=== PATIENT | female | born 1935 | race Caucasian/White ===

== ENCOUNTER → 2017-12-28 | Outpatient (CLI) | payer OTHER ==
[~2017-12-28] VITALS: Ht 149.9 cm; Wt 47.2 kg
[~2017-12-28] MED LIST: ASPIR 8181 MG PO; B12INJ IM; CALCIUM 500 +1 EAC5 PO; FISH OIL 1,001000 M2 PO; HYDROCODON-ACE1 EAC5 PO; HYDROCODONE-AP1 EAC6 PO; MAGOX 400400 MG PO; MOBIC15 MG PO; TYLENOL EXTRA500 MG PO; VITAMINC500 PO
--- NOTE | ~2017-12-28 | HPC ---
[facility] [place] [address] [place] [address] PAIN MANAGEMENT CONSULTATION Name: KASSIE MONTANA Room #: REG LACEY Angela.#: [id number] Admission: 12/28/17 Attend Phys: Panfilo Graber MD Discharge: Date of : 35 Report #: [id number] THIS REPORT FOR: //name// CC: Maurizio Garber DATE OF SERVICE: 12/28/2017 Followup visit for pain in the right hip and leg. The patient has improved some with her trochanteric bursa injection. In fact, for the first day or two the pain in the hip was nearly gone, has now returned somewhat. I think that we have provided some diagnostic information and she does indeed have some inflammatory changes around the area of her fracture in the trochanteric bursa. We also note today that she has secondary pains radiating from the hip down into the anterior thigh. She has pain in her knee as well. She says when she stands, she has pain that radiates down into both legs and her legs get "tired." PHYSICAL EXAMINATION: Today, reveals a very jevon pleasant 82-year-old. Blood pressure 114/65, heart rate 80, respirations 16. She is able to move from sitting to standing position without too much difficulty. Tenderness of the right hip is diminished, but still present. There is pain with hip flexion and external rotation. Straight leg raising today is also negative. Sensation and strength are normal in lower extremities. With prolonged standing in the pain clinic she begins to experience pain throughout the back that radiates down into the buttocks and into the legs bilaterally. IMPRESSION: 1. Trochanteric bursitis. 2. Lumbar radiculopathy. Dr. Ryan had recommended epidural injection trial and I have agreed today that we should see if she receives some sustained benefit with a single injection. Further injections will depend upon response. PROCEDURE: Lumbar epidural steroid injection under fluoroscopic guidance. DESCRIPTION OF PROCEDURE: She was taken to fluoroscopic suite, placed prone, skin prepped with ChloraPrep. Skin anesthetized over the L4-L5 interspace and a 20-gauge Tuohy epidural needle advanced first attempt in the epidural space with loss of resistance, there was no blood or CSF aspirated. 1 mL of Omnipaque was injected, good spread of dye observed, followed by 3 mL of 0.5% lidocaine mixed with 80 mg of triamcinolone. She tolerated the procedure well. She was observed for 45 minutes and discharged. Pain was 0 [place] [address] PAIN MANAGEMENT CONSULTATION Name: KASSIE MONTANA [facility] [id number] Admission: 12/28/17 Attend Phys: Panfilo Garber MD Discharge: Date of : 35 Report #: [id number] We will see her back in a month to a month and a half. <ELECTRONICALLY SIGNED> By: Panfilo Garber MD 01/01/18 1408 [id number] Panfilo Garber MD /catrachita
[2017-12-28 13:40] VITALS: BP 114/65
== END | disposition home or self-care (01) ==
LOC: PAIN 06:52
DX: M54.16 Radiculopathy, lumbar region (principal); M70.61 Trochanteric bursitis, right hip; Z88.2 Allergy status to sulfonamides; Z88.8 Allergy status to other drugs, medicaments and biological substances; Z79.82 Long term (current) use of aspirin; Z79.891 Long term (current) use of opiate analgesic

== ENCOUNTER → 2018-03-19 | Outpatient (CLI) | payer OTHER ==
[~2018-03-19] VITALS: Ht 149.9 cm; Wt 44.7 kg
[~2018-03-19] MED LIST changes: +CYMBALTA20 MG PO
--- NOTE | ~2018-03-19 | HPC ---
[facility] [place] [address] [place] [address] PAIN MANAGEMENT CONSULTATION Name: KASSIE MONTANA Room #: REG LACEY Julio César.#: [id number] Admission: 03/19/18 Attend Phys: Panfilo Garber MD Discharge: Date of : 35 Report #: [id number] THIS REPORT FOR: //name// CC: Maurizio Garber DATE OF SERVICE: 03/19/2018 REASON FOR VISIT: Followup visit for persistent right hip pain status post fracture for the first time in 3 visits. HISTORY OF PRESENT ILLNESS: The patient returns to Pain Clinic without crying. She has been very depressed by her slow recovery from her hip fracture. She has never had anything this kept her down for this long and I am glad to report that she seems to be finally turning the corner a bit. The pain intensity seems less. She is walking a bit more. She has developed plan to try and do a bit more walking and I have encouraged her to use the pool at her complex during these warm days when she can slip into the water in the morning when there are people there using a foam support and walk back and forth in the swimming pool. This should help with mobility of her right hip. She is now nearly 9 months out from her surgery. Trials of antidepressants for her situational depression failed miserably with side effects. Cymbalta even at low dose created hyponatremia with a sodium of 115. We have kept her on hydrocodone one half tablet of the 10/325 strength taking 2-3 times a day. She is allowed to take a full tablet if the pain is severe. She tolerates it reasonably well with keyv-lv-slpacpgk constipation. She seems to have accepted the constant reassurance that there is nothing to do other than tincture of time and that there is nothing that we can do to "fix the problem." PHYSICAL EXAMINATION: VITAL SIGNS: She is 4 feet 11 inches and weight 98 pounds with a BMI of 19.9. Blood pressure 135/58 and heart rate 70. Pain intensity 6. MUSCULOSKELETAL: She can stand independently, walks with her walker and her gait is fairly stable. She is not a fall risk at this time. She is on no blood thinners. She is at low risk for addiction by the opioid risk tool and we have had her sign an opioid agreement to understand the importance of safeguarding medications. IMPRESSION: 1. Chronic right hip pain status post fracture. 2. Situational depression, which seems to be improving. [facility] [address] [place] [address] PAIN MANAGEMENT CONSULTATION Name: KASSIE MONTANA Room #: REG [facility]#: [id number] Admission: 03/19/18 Attend Phys: Panfilo Garber MD Discharge: Date of : 35 Report #: [id number] PLAN: Follow up in the Pain Clinic in 3 months. By: [id number] Panfilo Garber MD /catrachita
[2018-03-19 13:01] VITALS: BP 135/58
== END ==
LOC: PAIN 06:42
DX: Z09 Encounter for follow-up examination after completed treatment for conditions other than malignant neoplasm (principal); M25.551 Pain in right hip; G89.29 Other chronic pain

== ENCOUNTER → 2018-07-12 | Outpatient (CLI) | payer OTHER ==
[~2018-07-12] VITALS: Ht 149.9 cm; Wt 43.4 kg
[~2018-07-12] MED LIST changes: +VOLTAREN GEL 1100 G1 TOP
--- NOTE | ~2018-07-12 | HPC ---
[facility] [place] [address] [place] [address] PAIN MANAGEMENT CONSULTATION Name: KASSIE MONTANA Room #: REG LACEY Meseret.#: [id number] Admission: 07/12/18 Attend Phys: Kityt Devi Discharge: Date of : 35 Report #: [id number] THIS REPORT FOR: //name// CC: Kitty Garber MD DATE OF SERVICE: 07/12/2018 CHIEF COMPLAINT: Today is for chronic hip pain status post fracture, here for medication management. HISTORY OF PRESENT ILLNESS: The patient returns to the pain clinic today for followup for her right hip pain. She states that she is afraid to take too many pain pills for fear of getting addicted. She states though when she does take core hydrocodone for her right hip pain that it is helpful. She states that her diclofenac that we had given at her last visit was not effective and stopped using that. She had some CBD oil that she attempted to use on her hip also, but that was an ineffective also. The patient does use a walker and is very careful when she is out of the house. She does occasionally use a cane when she is in the presence of another person and uses a cane while she is inside her house. She denies constipation presently. She does try to walk on the streets outside and was encouraged to be careful as the weather will be changing and it may have icy conditions. ALLERGIES: SULFA AND CELEBREX. CURRENT MEDICATIONS: Hydrocodone 10/325, aspirin, Tylenol Extra Strength, vitamin C, fish oil, Mag-Ox and Os-Cristobal. PQRS: 1. The patient does have a history of osteoarthritis in her hips. Denies rheumatoid arthritis. 2. Height 4 feet 11 inches, weight 95.6, the patient's BMI is 19.3. 3. Vital signs: Blood pressure 122/57, pulse is 80, respirations 14, oxygen level is 98. 4. Pain intensity is 5/10. 5. Fall risk: Does have some dizziness and uses a walker or a cane at all times, has not fallen in the last 3 months. 6. The patient is on no blood thinners. 7. Does have a history of hypertension. 8. Opioid therapy greater than 6 weeks. There is not an opioid contract in the chart at present. 9. Risk assessment is low. 10. Functional assessment tool is . [address] [address] PAIN MANAGEMENT CONSULTATION Name: KASSIE MONTANA Room #: REG [facility]#: [id number] Admission: 07/12/18 Attend Phys: Kitty Devi Discharge: Date of : 35 Report #: [id number] 11. No recreational drug use. The patient has never been a smoker and does have some past use of alcohol history. 12. The patient does have a [place] DPMP on the chart that is appropriate from Dr. Panfilo Garber. There were some tramadol in there from her orthopedic, but the patient states that she is not taking them presently because she did not want to take the hydrocodone and tramadol at the same time. PHYSICAL EXAMINATION: GENERAL: This is a very pleasant 83-year-old who is able to move from sitting to standing to walking with a little bit of difficulty. She says she has tenderness over her right hip with pain with flexion, extension and rotation. She states otherwise that she feels good. HEENT: Normocephalic, atraumatic. Extraocular muscles are intact. Mucous membranes moist. Hearing is adequate. LUNGS: Sounds clear. HEART: Regular. IMPRESSION: 1. Chronic right hip pain status post fracture. 2. Situational depression, but it has improved. 3. Management of high risk medicines under an opioid contract. PLAN: 1. We reviewed the fact that opiate medications are being used to provide analgesia adequate to support activities of daily living, not attempting to achieve a specific pain score on the 0-10 Visual Analog Scale. The current opiate medications are providing sufficient analgesia to allow the patient to participate in activities of daily living. The patient is not exhibiting any aberrant behavior suggestive of drug diversion. The patient is not having any adverse reactions to medications. The patient is not suffering from daytime somnolence or mental acuity changes. The patient is managing opiate-induced constipation with appropriate gnek-shh-hxnevwx agents and dietary considerations. The patient was counseled on concern for caution with operating a motor vehicle while using opiate medications. A physical exam was performed and the patient's functional status was evaluated. All patients with back pain were advised against the bed rest greater than 4 days and were advised to return to normal activities. Pain score assessment was noted and the treatment plan was reviewed with the patient. All current medications, both prescribed and OTC were reviewed and reconciled on the electronic medical record. Tobacco screening was accomplished and smoking cessation was advised when indicated. BMI was noted and diet/exercise modification was recommended for all patients following outside normal parameters. I reviewed with the patient today their responsibilities to [address] [address] PAIN MANAGEMENT CONSULTATION Name: KASSIE MONTANA Room #: REG LACEY Keen#: [id number] Admission: 07/12/18 Attend Phys: Kitty Devi Discharge: Date of : 35 Report #: [id number] prescription medications, reviewed their responsibility to utilize medications only as prescribed by the physician. They are to seek and receive pain medications only from 1 physician group ( [facility]). They are to use 1 pharmacy and keep the clinic informed if they change pharmacies. Their responsibilities include making followup visits in a timely fashion and to avoid abrupt discontinuation of medication usage. Their responsibilities further include bringing their medications (bottles from the pharmacy with residual pills) to the visit for possible confirmation of pill counts and the patient understands it is their responsibility to submit to random drug screens to ensure both that the medications prescribed are present, and that no other controlled substances are present. All prescriptions provided today were generated electronically. 2. After much discussion with the patient regarding opioid use and abuse versus using it for helping to achieve her pain control, it was decided that the patient will continue on her hydrocodone 10/325 she may take half to one pill up to 3 times a day, a total of 90 pills in a month or 3 pills a day. The patient may choose to split these and may do that every 4 hours if needed with a max of 3 pills a day. The patient was agreeable with that, thinks that may help when she is going on trips to take half a pill several times a day because recently she was not able to function very well on these trips due to pain. The patient will follow up in [address] Panfilo Garber or myself if needed or sooner if problems arise. The patient was seen in collaboration with Dr. Panfilo Garber. <ELECTRONICALLY SIGNED> By: Kitty Devi 07/16/18 0715 [id number] [id number] Kitty estes
[2018-07-12 10:18] VITALS: BP 122/57
== END ==
LOC: PAIN 07:08
DX: M25.551 Pain in right hip (principal); G89.29 Other chronic pain; F43.21 Adjustment disorder with depressed mood; Z79.891 Long term (current) use of opiate analgesic; Z79.899 Other long term (current) drug therapy

== ENCOUNTER → 2018-09-11 | Outpatient (CLI) | payer OTHER ==
[~2018-09-11] VITALS: Ht 149.9 cm; Wt 44.5 kg
[~2018-09-11] MED LIST changes: +GABAPENTIN 100100 MG PO; +VITAMIN D1000 UNI1 PO
--- NOTE | ~2018-09-11 | HPC ---
[facility] [place] [address] [place] [address] PAIN MANAGEMENT CONSULTATION Name: KASSIE MONTANA Room #: REG LACEY Meseret.#: [id number] Admission: 09/11/18 Attend Phys: Kitty Devi Discharge: Date of : 35 Report #: [id number] THIS REPORT FOR: //name// CC: Kitty Steven Adriannaloretta DATE OF SERVICE: 09/11/2018 CHIEF COMPLAINT: Chronic hip pain status post fracture. HISTORY OF PRESENT ILLNESS: The patient returns to the pain clinic today for followup for her medication management that she takes for ongoing right hip pain from a previous fracture. She tells me that it radiates into her thigh and groin, occasionally has some right knee pain and some foot pain, but mostly centered in her right hip. She complains of pain score of 6/10 today of a burning, achy, sharp pain, worse with her walking and standing. The medication that she takes thinks helps some. She is worried that she will get addicted to these medications. So she does take 3 of her hydrocodone a day, but feels like occasionally, it does not work as well as other times that she takes it. The patient would like a refill of her medications today. ALLERGIES: SULFA AND CELEBREX. CURRENT MEDICATIONS: Vitamin D daily, hydrocodone 10/325 up to 3 times a day, Tylenol Extra Strength as needed, aspirin 81 mg daily, vitamin B12 daily, fish oil daily, Mag-Ox daily and Os-Cristobal with vitamin D daily. PQRS: The patient has a history of osteoarthritis and denies rheumatoid arthritis. Height is 4 feet 11 inches, weight 98, BMI is 19.8. Vital signs: Blood pressure 149/62, pulse is 68, respirations 16, oxygen sat is 97%. Pain score 6/10. Fall risk she denies dizziness, does not need help walking or standing, though does use a walker and not fallen in the last 3 months. The patient denies blood thinners, does not take antihypertensive medicines. She has opioid signed contract that we have placed in the chart for her next medication refill. Her risk assessment tool is low and her functional assessment is 28/70. The patient denies recreational drug use. She does not smoke and does not drink alcohol. The patient's prescription monitoring system that we checked the patient is filling appropriately and monthly time fills from Dr. Panfilo Garber. The patient tells me that she does safeguard her medications. PHYSICAL EXAMINATION: GENERAL: This is a very pleasant 83-year-old female who appears her stated age. She is alert and orientated x 3. Her affect is appropriate. HEENT: Normocephalic, atraumatic. Extraocular eye muscles are intact. Mucous membranes are moist and hearing is adequate. [address] [address] PAIN MANAGEMENT CONSULTATION Name: KASSIE MONTANA Room #: REG [facility] Osmani#: [id number] Admission: 09/11/18 Attend Phys: Kitty Devi Discharge: Date of : 35 Report #: [id number] NECK: No JVD or adenopathy. MUSCULOSKELETAL: The patient moves from sitting to standing with a little difficulty. She has tenderness over her right hip into her right groin. Does use a walker and she walks with an antalgic gait. The patient does complain of burning in her right thigh, occasionally radiates to her lower leg. IMPRESSION: 1. Chronic right hip pain status post fracture. 2. Situational depression, but has improved. No longer on antidepressants. 3. Neuropathy. 4. Management of high-risk medications in her opioid contract. We reviewed the fact that opiate medications are being used to provide analgesia adequate to support activities of daily living, not attempting to achieve a specific pain score on the 0-10 Visual Analog Scale. The current opiate medications are providing sufficient analgesia to allow the patient to participate in activities of daily living. The patient is not exhibiting any aberrant behavior suggestive of drug diversion. The patient is not having any adverse reactions to medications. The patient is not suffering from daytime somnolence or mental acuity changes. The patient is managing opiate-induced constipation with appropriate qnvo-rwl-uiepyyb agents and dietary considerations. The patient was counseled on concern for caution with operating a motor vehicle while using opiate medications. A physical exam was performed and the patient's functional status was evaluated. All patients with back pain were advised against the bed rest greater than 4 days and were advised to return to normal activities. Pain score assessment was noted and the treatment plan was reviewed with the patient. All current medications, both prescribed and OTC were reviewed and reconciled on the electronic medical record. Tobacco screening was accomplished and smoking cessation was advised when indicated. BMI was noted and diet/exercise modification was recommended for all patients following outside normal parameters. I reviewed with the patient today their responsibilities to safeguard prescription medications, reviewed their responsibility to utilize medications only as prescribed by the physician. They are to seek and receive pain medications only from 1 physician group ( [facility]). They are to use 1 pharmacy and keep the clinic informed if they change pharmacies. Their responsibilities include making followup visits in a timely fashion and to avoid abrupt discontinuation of medication usage. Their responsibilities further include bringing their medications (bottles from the pharmacy with residual pills) to the visit for possible confirmation of pill counts and the patient understands it is their responsibility to submit to random drug screens to ensure both that the medications prescribed are present, and that no other controlled substances are present. All prescriptions provided today were [facility] [address] [place] [address] PAIN MANAGEMENT CONSULTATION Name: KASSIE MONTANA Room #: REG LACEY Osmani#: [id number] Admission: 09/11/18 Attend Phys: Kitty Devi Discharge: Date of : 35 Report #: [id number] generated electronically. PLAN: 1. We discussed treatment options today and reviewed the patient's medications. She tells me that she has been taking her hydrocodone 3 times a day, spaced about every 8 hours. She finds that some days are more helpful than others. She does occasionally take some Tylenol to supplement if she has increased pain. 2. The patient complains of burning in her leg today, especially on her right thigh and groin. We discussed treatment with gabapentin, which is a nerve medication. The patient is familiar with this since her had taken it when he had shingles. I talked to her about side effects and the need of this medicine to start slowly and increase slowly due to possible side effects such as dizziness or drowsiness. The patient lives alone. We do not want her to fall. The patient understands these. We will start at 100 mg at bedtime. The patient will take this a few hours before she goes to bed to see if that helps with less side effects in the morning. The patient will call our office in about 2 weeks to see how she is doing with this medicine. If she finds that it has been a little beneficial for her burning pain, we will increase it. We will increase slow to reduce side effects. Our goal will be 300 mg either spaced throughout the day or all at bedtime. The patient is agreeable with this plan of care. 3)Scripts given today for her hydrocodone 10/325, #90 for today, for an 8-week and gabapentin 100 mg, #30 with one additional refill. The patient will return in 2-month timeframe. The patient is seen today in collaboration with Dr. Panfilo Garber. <ELECTRONICALLY SIGNED> By: Kitty Devi 09/12/18 0722 1320 [id number] Kitty Devi /nt
[2018-09-11 11:00] VITALS: BP 149/62
== END ==
LOC: PAIN 10:05
DX: M25.551 Pain in right hip (principal); G89.29 Other chronic pain; G62.9 Polyneuropathy, unspecified; Z79.891 Long term (current) use of opiate analgesic

== ENCOUNTER → 2018-11-08 | Outpatient (CLI) | payer OTHER ==
[~2018-11-08] VITALS: Ht 149.9 cm; Wt 45.5 kg
[~2018-11-08] MED LIST changes: +FLUZONE HI180 MCG/06 IM
[2018-11-08 10:31] VITALS: BP 117/54
--- NOTE | 2018-11-08 10:51 | NUR ---
Pain Clinic Assessment: 1. History of Osteoarthritis: YES History of Rheumatoid Arthritis: NO 2. Height: 4 ft. 11 in. 149.9 cm. Weight: 100.2 lb. oz. 45.450 kg. Patient's BMI: 20.2 3. Vital Signs: BP: 117/54 Pulse: 70 Resp: 14 Temp: 02 Sat: 99 ECG Mon: 4. Pain Intensity: 3 WITH MEDS 5. Fall Risk: Dizziness: N Needs help standing or walking: Y Fallen in the last 3 months: N Fall risk comments: 6. Patient on Blood Thinner: None 7. History of Hypertension: N 8. Opioid Therapy greater than 6 weeks: N Opiate Contract Signed: 9. Risk Assessment Tool Provided: LOW RISK 09/27 10. Functional Assessment Tool: 11. Recreational Drug Use: Never Drug Type: Tobacco Use: Never Smoker Tobacco Type: Amount or Packs/day: How Many Years: Alcohol Use: Past use Frequency: Quant:
--- NOTE | 2018-11-09 08:22 | HPC ---
[facility] [place] [address] PAIN MANAGEMENT CONSULTATION Name: KASSIE MONTANA Room #: REG LACEY Osmani#: [id number] Admission: 11/08/18 ������������������ Attend Phys: Kitty Devi Discharge: ������������������ Date of : 35 Report #: [id number] THIS REPORT FOR: //name// CC: Kitty Steven Jorge DATE OF SERVICE: 11/08/2018 CHIEF COMPLAINT: Chronic hip pain, status post fracture. HISTORY OF PRESENT ILLNESS: The patient returns to the pain clinic today for refill of her current medications. She tells me she has ongoing pain in her right hip. The patient is able to pinpoint an area where she feels that it is most painful. She tells me that the hydrocodone that we give her is very helpful, but she feels like she is addicted to the medications. She says she does take them though because they are very helpful and she is able to be active, she exercises and walks. She tells us today that the trial of gabapentin that we gave her did not help with any of her pain, so she has stopped taking that per our directions. She denies any constipation. She takes the milk of magnesia when she feels that she needs to. Otherwise, her pain score today she tells us is 3/10 and would like a refill of her medications today. ALLERGIES: SULFA, CELEBREX. MEDICATIONS: Hydrocodone 10/325 half to one tablet 3 times a day, vitamin D twice daily, 81 mg aspirin, Tylenol Extra Strength as needed, ascorbic acid 500 mg daily, vitamin B12 daily, fish oil daily, Mag-Ox 400 mg daily, Os-Cristobal 500 daily. PQRS: 1. She has history of osteoarthritis in her hip and knee. She denies rheumatoid arthritis. 2. Height is 4 feet 11 inches, weight is 100, BMI is 20. 3. Vital signs: Blood pressure 117/54, pulse is 70, respirations 14, oxygen sat is 99. 4. Pain score 3/10 with medication. 5. Fall risk. Denies dizziness. She does need help walking and standing. She uses a walker. She has not fallen in the last 3 months. 6. The patient is not on any blood thinners and she does not take any antihypertensive medications. 7. Opioid therapy is greater than 6 weeks. Therefore, we signed an opioid contract today and is on the chart. 8. Risk assessment tool is low. Her functional assessment is 28/70. 9. Recreational drug use, she denies. She is not a smoker, [place] [address] PAIN MANAGEMENT CONSULTATION Name: KASSIE MONTANA Room #: REG LACEY Keen#: [id number] Admission: 11/08/18 ������������������ Attend Phys: Kitty Devi Discharge: ������������������ Date of : 35 Report #: [id number] We checked the prescription monitoring system. The patient is filling appropriately with her medications and is due for those today. PHYSICAL EXAMINATION: GENERAL: This is a very pleasant 83-year-old female who appears her stated age. She is alert and orientated. Her affect is appropriate. Her speech is fluent. HEENT: Normocephalic, atraumatic. Extraocular eye muscles are intact. Mucous membranes are moist. Hearing is adequate. MUSCULOSKELETAL: The patient is able to move from sitting to standing with little difficulty. She does complain of point tenderness in her right hip. She uses a walker and walks with a slight antalgic gait. The patient is able to do complete range of motion in her right hip. ASSESSMENT: 1. Chronic right hip pain, status post fracture and repair. 2. Situational depression. 3. Neuropathy. 4. Management of high risk medications under opioid agreement. We reviewed the fact that opiate medications are being used to provide analgesia adequate to support activities of daily living, not attempting to achieve a specific pain score on the 0-10 Visual Analog Scale. The current opiate medications are providing sufficient analgesia to allow the patient to participate in activities of daily living. The patient is not exhibiting any aberrant behavior suggestive of drug diversion. The patient is not having any adverse reactions to medications. The patient is not suffering from daytime somnolence or mental acuity changes. The patient is managing opiate-induced constipation with appropriate [id number] agents and dietary considerations. The patient was counseled on concern for caution with operating a motor vehicle while using opiate medications. A physical exam was performed and the patient's functional status was evaluated. All patients with back pain were advised against the bed rest greater than 4 days and were advised to return to normal activities. Pain score assessment was noted and the treatment plan was reviewed with the patient. All current medications, both prescribed and OTC were reviewed and reconciled on the electronic medical record. Tobacco screening was accomplished and smoking cessation was advised when indicated. BMI was noted and diet/exercise modification was recommended for all patients following outside normal parameters. I reviewed with the patient today their responsibilities to safeguard prescription medications, reviewed their responsibility to utilize medications only as prescribed by the physician. They are to seek and receive pain medications only from 1 physician group ([facility]). They are to use [address] [address] PAIN MANAGEMENT CONSULTATION Name: KASSIE MONTANA Room #: REG CLEstuardo Keen#: [id number] Admission: 11/08/18 ������������������ Attend Phys: Kitty RUFUS Devi Discharge: ������������������ Date of : 35 Report #: [id number] pharmacy and keep the clinic informed if they change pharmacies. Their responsibilities include making followup visits in a timely fashion and to avoid abrupt discontinuation of medication usage. Their responsibilities further include bringing their medications (bottles from the pharmacy with residual pills) to the visit for possible confirmation of pill counts and the patient understands it is their responsibility to submit to random drug screens to ensure both that the medications prescribed are present, and that no other controlled substances are present. All prescriptions provided today were generated electronically. PLAN: 1. We reviewed treatment options with the patient today. The patient tells me that she is doing quite well when she does take her hydrocodone. She is afraid that she has become addicted. We did discuss addiction versus dependency and tolerance, though that the patient is not addicted to these medications. She does need these medications to help with her pain and she is able to function while taking these pain medications. The patient agrees with that. She told me that the gabapentin only made her sleepy, so she is not taking that, but the hydrocodone that she takes, she is able to function and her pain is decreased while she takes this. 2. We did discuss with her pinpoint right hip pain and it was decided to do an x-ray of her right hip, AP and lateral as well as her pelvis to see if there is anything that may be causing the significant pain since she has had her surgery a year and a half ago. The patient went to the X-ray Department and came back. We reviewed the x-ray with her. It showed no fractures and that the hardware was intact. There is one slight area where the metal magdy is slightly higher than her bone of her hip. This may be causing some of her discomfort. We feel that this will continue to get better over time. The patient tells us that her pain has decreased some and glad to see that nothing is wrong with her surgery sites. 3. The patient will continue to take her medicines that she needs to at home. Two scripts were given today of hydrocodone 10/325, #90 to be released today and 4 weeks. 4. The patient seen also by Dr. Garber today who also discussed and reiterated the time will help with her pain and her medications will also help with her pain, in collaboration with Dr. Panfilo Garber today. ��������������������������������������������� <ELECTRONICALLY SIGNED> ���������������������������������������� By: Kitty Devi ��������������������������������������������� 11/09/18 0822 [id number] Kitty Devi /catrachita
== END ==
LOC: PAIN 07:02
DX: G89.29 Other chronic pain (principal); M19.90 Unspecified osteoarthritis, unspecified site; F32.9 Major depressive disorder, single episode, unspecified; G62.9 Polyneuropathy, unspecified; Z88.2 Allergy status to sulfonamides; Z88.8 Allergy status to other drugs, medicaments and biological substances; Z79.899 Other long term (current) drug therapy; Z79.82 Long term (current) use of aspirin

== ENCOUNTER → 2019-01-01 | Outpatient (CLI) | payer OTHER ==
[~2019-01-01] VITALS: Ht 149.9 cm; Wt 46.1 kg
[2019-01-01 10:05] VITALS: BP 133/60
--- NOTE | 2019-01-01 10:21 | NUR ---
Pain Clinic Assessment: 1. History of Osteoarthritis: YES History of Rheumatoid Arthritis: NO 2. Height: 4 ft. 11 in. 149.9 cm. Weight: 101.6 lb. oz. 46.085 kg. Patient's BMI: 20.5 3. Vital Signs: BP: 133/60 Pulse: 75 Resp: 14 Temp: 02 Sat: 100 ECG Mon: 4. Pain Intensity: 5 5. Fall Risk: Dizziness: N Needs help standing or walking: Y Fallen in the last 3 months: N Fall risk comments: 6. Patient on Blood Thinner: None 7. History of Hypertension: N 8. Opioid Therapy greater than 6 weeks: Y Opiate Contract Signed: 9. Risk Assessment Tool Provided: LOW RISK 09/27 10. Functional Assessment Tool: 11. Recreational Drug Use: Never Drug Type: Tobacco Use: Never Smoker Tobacco Type: Amount or Packs/day: How Many Years: Alcohol Use: Past use Frequency: Quant:
--- NOTE | 2019-01-02 07:58 | HPC ---
[facility] [place] [address] [place] [address] PAIN MANAGEMENT CONSULTATION Name: KASSIE MONTANA Room #: REG LACEY Julio César.#: [id number] Admission: 01/01/19 ������������������ Attend Phys: Kitty Devi Discharge: ������������������ Date of : 35 Report #: [id number] THIS REPORT FOR: //name// CC: Kitty Ortiz DATE OF SERVICE: 01/01/2019 CHIEF COMPLAINT: Chronic hip pain, status post fracture and lumbar radiculopathy. HISTORY OF PRESENT ILLNESS: The patient returns to the pain clinic today for refill of her current medications. She tells me that she would like to get off her pain medicines. She feels that they are not as helpful as she was hoping. A friend of hers had directed her to go see Dr. Ortiz what the patient has done since our last visit with her in October and she tells me that she is planning on having [employer] spinal cord stimulator trial with him. She is in the process of seeing the psych evaluation, which she had done yesterday and is waiting to have the date set for her trial. She was very worried that we would be mad at her for going to another doctor. I explained to her that we are not mad at her, that Dr. Garber does also do this procedure. She tells me that she is just tired of being in pain. She feels like she is regressing in her walking. She tells me that she is having more balance issues. She is just tired all the time, tired of being in pain and was just looking for some alternative. The patient continues to take her hydrocodone 1 tablet 3 times a day, though it only lasts about 4 hours before it wears off and she does take gabapentin 1 tablet at bedtime. This enables her to sleep. She tells me today, her pain score is 5/10, mostly in her lower back, right buttock, right groin, right thigh, right knee. She also complains of some arthritic hand issues today. Her pain is worse with walking and standing. She does use a walker. The patient denies any constipation or daytime sleepiness. She just feels sleepy in the morning since she is not sleeping well at night. ALLERGIES: SULFA, CELEBREX. CURRENT MEDICATIONS: Hydrocodone 10/325 half to one tablet 3 times a day, vitamin D 1000 units twice daily, aspirin 81 mg daily, Tylenol Extra Strength as needed, vitamin C 500 mg daily, vitamin B12 injection monthly, fish oil 1000 mg daily, Mag-Ox 400 mg daily, Os-Cristobal 500 mg daily. PQRS: 1. She does have a history of osteoarthritis in her hips, knees and hands. Denies any rheumatoid arthritis. 2. Height is 4 feet 11 inches, weight is 101. BMI [place] 20[place] [address] PAIN MANAGEMENT CONSULTATION Name: KASSIE MONTANA Room #: REG Estuardo Keen#: [id number] Admission: 01/01/19 ������������������ Attend Phys: Kitty Devi Discharge: ������������������ Date of : 35 Report #: [id number] 3. Vital signs: Blood pressure 133/60, pulse of 75, respirations 14, oxygen sat is 100%. 4. Pain score is 5/10. 5. Fall risk. Denies dizziness. Does use a walker for walking. Has not fallen in the last 3 months. 6. The patient is not on any blood thinners. She does not take any medicines for hypertension. 7. Opioid therapy is greater than 6 weeks; therefore, an opioid signed contract was on the chart. 8. Risk assessment tool is low. Her functional assessment is 28/70. 9. Recreational drug use, she denies. She is not a smoker and she does not drink alcohol. Did check the prescription monitoring system. The patient is filling appropriately from Dr. Panfilo Garber. She tells me that she does safeguard her medications at all times. PHYSICAL EXAMINATION: GENERAL: This is a very pleasant 83-year-old female who appears her stated age. Placing her pain score today at 5/10. Her affect is appropriate. Her speech is fluent. She is alert and orientated and she is a good historian. HEENT: Normocephalic, atraumatic. Extraocular eye muscles are intact. Mucous membranes are moist. Hearing is adequate. MUSCULOSKELETAL: The patient is able to move from sitting to standing with the aid of the armchairs and uses a walker. She does have an antalgic gait. She complains of tenderness over her right hip. She does have pain that radiates along the outer aspect of her right leg down into her calf, not involving her foot. Lower extremity strength is judged to be 4/5 bilaterally and equal muscle tone. ASSESSMENT: 1. Chronic right hip pain, status post fracture and repair. 2. Situational depression. 3. Neuropathy. 4. Management of high risk medication under opioid agreement. 5. Lumbar radiculopathy. We reviewed the fact that opiate medications are being used to provide analgesia adequate to support activities of daily living, not attempting to achieve a specific pain score on the 0-10 Visual Analog Scale. The current opiate medications are providing sufficient analgesia to allow the patient to participate in activities of daily living. The patient is not exhibiting any aberrant behavior suggestive of drug diversion. The patient is not having any adverse reactions to medications. The patient is not suffering from daytime somnolence or mental acuity changes. The patient is managing opiate-induced constipation with appropriate [id number]-[id number] agents and dietary considerations. The patient was counseled on concern for caution with operating a motor vehicle while using opiate medications. [facility] [address] [place] [address] PAIN MANAGEMENT CONSULTATION Name: KASSIE MONTANA Room #: REG LACEY Osmani#: [id number] Admission: 01/01/19 ������������������ Attend Phys: Kitty Devi Discharge: ������������������ Date of : 35 Report #: [id number] A physical exam was performed and the patient's functional status was evaluated. All patients with back pain were advised against the bed rest greater than 4 days and were advised to return to normal activities. Pain score assessment was noted and the treatment plan was reviewed with the patient. All current medications, both prescribed and OTC were reviewed and reconciled on the electronic medical record. Tobacco screening was accomplished and smoking cessation was advised when indicated. BMI was noted and diet/exercise modification was recommended for all patients following outside normal parameters. I reviewed with the patient today their responsibilities to safeguard prescription medications, reviewed their responsibility to utilize medications only as prescribed by the physician. They are to seek and receive pain medications only from 1 physician group ([facility]). They are to use 1 pharmacy and keep the clinic informed if they change pharmacies. Their responsibilities include making followup visits in a timely fashion and to avoid abrupt discontinuation of medication usage. Their responsibilities further include bringing their medications (bottles from the pharmacy with residual pills) to the visit for possible confirmation of pill counts and the patient understands it is their responsibility to submit to random drug screens to ensure both that the medications prescribed are present, and that no other controlled substances are present. All prescriptions provided today were generated electronically. PLAN: 1. We discussed treatment options with the patient today. The patient has brought the [employer] spinal cord stimulator information with her today telling me that she had visited with Dr. Ortiz and is in the process of having this information approved by her insurance company so she is able to have a spinal cord stimulator trial. I did tell her that Dr. Panfilo Garber does this procedure as well. We have done epidurals in the past that were not helpful for any radicular pain and we have also tried gabapentin that the patient was unable to tolerate at higher doses, so therefore, she is only on 100 mg at night. I told her maybe this will be a good option for her and to continue having Dr. Ortiz work her up and go through with the trial. 2. Dr. Garber did enter the room and told the patient that is fine. She is to see Dr. Ortiz for the spinal cord stimulator and he is very hopeful that it will work for her. She tells the patient that we will write her medicines for this month and then, she can continue with Dr. Ortiz hopefully after she has the trial and if it is effective that she will be able to decrease her pain medicine. Dr. Garber said that Dr. Ortiz could tell her how to wean off of her hydrocodone. 3. Prescriptions given for hydrocodone 10/325 half to one tablet t.i.d., #90 and gabapentin 100 mg capsules 1 at bedtime, #30 with 1 additional refill. 4. The patient verbalizes understanding. She feels bad that she will no longer [facility] [address] [place] [address] PAIN MANAGEMENT CONSULTATION Name: KASSIE MONTANA Room #: REG CLEstuardo Angela.#: [id number] Admission: 01/01/19 ������������������ Attend Phys: Kitty Devi Discharge: ������������������ Date of : 35 Report #: [id number] be coming to our clinic, but she understands that if this is helpful that she will be able to get off her medications and hopefully, increase her function. This is the main goal for all of us for her, is to increase her ability to walk with decreased pain. We wish her the best of luck and following with Dr. Ortiz. 5. The patient is seen today with Dr. Garber who collaborated care. ��������������������������������������������� <ELECTRONICALLY SIGNED> ���������������������������������������� By: Kitty Devi ��������������������������������������������� 01/02/19 0758 [id number] Kitty Devi /nt
== END ==
LOC: PAIN 06:57
DX: M25.551 Pain in right hip (principal); F32.9 Major depressive disorder, single episode, unspecified; M54.16 Radiculopathy, lumbar region; G62.9 Polyneuropathy, unspecified; Z79.899 Other long term (current) drug therapy; Z98.890 Other specified postprocedural states

== ENCOUNTER → 2019-01-29 | Outpatient (CLI) | payer OTHER ==
[~2019-01-29] VITALS: Ht 149.9 cm; Wt 45.5 kg
[2019-01-29 08:41] VITALS: BP 107/55
--- NOTE | 2019-01-29 08:53 | NUR ---
Pain Clinic Assessment: 1. History of Osteoarthritis: YES History of Rheumatoid Arthritis: NO 2. Height: 4 ft. 11 in. 149.9 cm. Weight: 100.2 lb. oz. 45.450 kg. Patient's BMI: 20.2 3. Vital Signs: BP: 107/55 Pulse: 80 Resp: 14 Temp: 02 Sat: 99 ECG Mon: 4. Pain Intensity: 4 5. Fall Risk: Dizziness: N Needs help standing or walking: Y Fallen in the last 3 months: N Fall risk comments: 6. Patient on Blood Thinner: None 7. History of Hypertension: N 8. Opioid Therapy greater than 6 weeks: Y Opiate Contract Signed: 9. Risk Assessment Tool Provided: LOW RISK 09/27 10. Functional Assessment Tool: 11. Recreational Drug Use: Never Drug Type: Tobacco Use: Never Smoker Tobacco Type: Amount or Packs/day: How Many Years: Alcohol Use: Past use Frequency: Quant:
--- NOTE | 2019-01-30 07:33 | HPC ---
[facility] [address] [place] [address] PAIN MANAGEMENT CONSULTATION Name: KASSIE MONTANA Room #: REG LACEY Julio César.#: [id number] Admission: 01/29/19 ������������������ Attend Phys: Kitty Devi Discharge: ������������������ Date of : 35 Report #: [id number] THIS REPORT FOR: //name// CC: Kitty Ortiz MD DATE OF SERVICE: 01/29/2019 CHIEF COMPLAINT: Chronic hip pain, status post fracture and lumbar radiculopathy. HISTORY OF PRESENT ILLNESS: This is a very pleasant 83-year-old female who returns to the Pain Clinic today for one last refill of her medications prior to her spinal cord stimulator with Dr. Ortiz next week. The patient is hopeful to have a successful trial for her low back pain, right thigh, groin and knee pain and bilateral feet pain and she tells me she hopes to get off of her medications of her hydrocodone once the spinal cord stimulator is implanted if it is a successful trial. She tells me her pain score is a 4/10, worse with walking and standing, better with her medications and heat, though she feels that her medications do not last 8 hours. She will run out of medicines prior to her spinal cord stimulator trial. That is why she is here today. Otherwise, after the trial, she is hopeful to transition her care to Dr. Ortiz's office and then taper off her medicines. The patient tells me that she has been trying to walk more. She has been walking down her street since the weather is better using her walker at all times when she is by herself. She brings with her some CBD oil today that her daughter had given her. She was wondering about trying that. She had tried the cream in the past on her hip, but that was ineffective. I explained that CBD oil does not have any THC in it. So therefore, it should be okay for her to use with her opioids and if she would like to try it once or twice a day, that is fine. ALLERGIES: SULFA AND CELEBREX. MEDICATIONS: Hydrocodone 10/325 up to 3 times a day, gabapentin 100 mg at bedtime, vitamin D, aspirin, vitamin C, fish oil, Mag-Ox and Os-Cristobal. PQRS: 1. She has arthritic changes in her hips, knees and hands. Denies any rheumatoid arthritis. 2. Height is 4 feet 11 inches, weight is 100, BMI is 20. 3. Vital signs: 107/55, pulse is 80, respirations 14, oxygen sat 99, [place] [address] PAIN MANAGEMENT CONSULTATION Name: KASSIE MONTANA Room #: REG [facility] Janessa.Onur.#: [id number] Admission: 01/29/19 ������������������ Attend Phys: Kitty Devi Discharge: ������������������ Date of : 35 Report #: [id number] score is 4/10. 4. Fall risk, denies dizziness. Uses a walker and has not fallen in the last 3 months. 5. She is not on any blood thinners and does not take medicine for hypertension. 6. Opioid therapy is greater than 6 weeks. Her risk assessment tool is low. Her functional assessment is 28/70. 7. Recreational drug use, she denies. She is not a smoker and used alcohol in the past. We did check the prescription monitoring system. The patient is due to fill her medications with no aberrant behaviors noted. PHYSICAL EXAMINATION: GENERAL: This is a very pleasant 83-year-old female, who appears her stated age, placing her pain score 4/10 today. Her affect is appropriate. Her speech is fluent. HEENT: Normocephalic, atraumatic. Extraocular eye muscles are intact. Mucous membranes are moist. Hearing is adequate. MUSCULOSKELETAL: The patient is able to move from sitting to standing with the use of the arm rest and her walker. She walks with an antalgic gait. She has tenderness over her right hip and numbness in her bilateral feet. Her lower extremity strength is judged to be 4/5 bilaterally with equal muscle tone and symmetry. Pain radiates down her right leg to the outer aspect of her calf. ASSESSMENT: 1. Chronic right hip pain, status post fracture and repair. 2. Situational depression. 3. Neuropathy. 4. Management of high risk medication under terms of written opioid agreement. 5. Lumbar radiculopathy. We reviewed the fact that opiate medications are being used to provide analgesia adequate to support activities of daily living, not attempting to achieve a specific pain score on the 0-10 Visual Analog Scale. The current opiate medications are providing sufficient analgesia to allow the patient to participate in activities of daily living. The patient is not exhibiting any aberrant behavior suggestive of drug diversion. The patient is not having any adverse reactions to medications. The patient is not suffering from daytime somnolence or mental acuity changes. The patient is managing opiate-induced constipation with appropriate waed-igz-jkphruv agents and dietary considerations. The patient was counseled on concern for caution with operating a motor vehicle while using opiate medications. A physical exam was performed and the patient's functional status was evaluated. All patients with back pain were advised against the bed rest greater than [address] [address] PAIN MANAGEMENT CONSULTATION Name: KASSIE MONTANA Room #: REG [facility]#: [id number] Admission: 01/29/19 ������������������ Attend Phys: Kitty RUFUS Shandra Discharge: ������������������ Date of : 35 Report #: [id number] days and were advised to return to normal activities. Pain score assessment was noted and the treatment plan was reviewed with the patient. All current medications, both prescribed and OTC were reviewed and reconciled on the electronic medical record. Tobacco screening was accomplished and smoking cessation was advised when indicated. BMI was noted and diet/exercise modification was recommended for all patients following outside normal parameters. I reviewed with the patient today their responsibilities to safeguard prescription medications, reviewed their responsibility to utilize medications only as prescribed by the physician. They are to seek and receive pain medications only from 1 physician group ( [facility]). They are to use 1 pharmacy and keep the clinic informed if they change pharmacies. Their responsibilities include making followup visits in a timely fashion and to avoid abrupt discontinuation of medication usage. Their responsibilities further include bringing their medications (bottles from the pharmacy with residual pills) to the visit for possible confirmation of pill counts and the patient understands it is their responsibility to submit to random drug screens to ensure both that the medications prescribed are present, and that no other controlled substances are present. All prescriptions provided today were generated electronically. PLAN: 1. We discussed treatment options with the patient today. The patient is having her spinal cord stimulator trial with Dr. Ortiz on the , but is out of her medications prior to that. Scripts given today for hydrocodone , #90 for release today from Dr. Panfilo Garber. The patient will continue to use these until the trial and then hopeful to decrease the medicines during the trial. If it is helpful, then she will have the permanent placed by Dr. Ortiz and hopefully wean off her hydrocodone. That is her ultimate goal. 2. The patient has brought CBD oil with her. I encouraged the patient that she can try it once or twice a day and see if it is helpful. She had tried the cream, which was ineffective, but she had not tried the CBD oil at this time. 3. I encouraged the patient to be as active as possible. Now that the weather is nicer, she has been walking some outside. I encouraged her to do that, especially during her trial to see if it is beneficial in relieving her pain. 4. The patient is seen with Dr. Panfilo Garber today who collaborated care. The patient will follow up with Dr. Ortiz from now on for her medication management and weaning. ��������������������������������������������� <ELECTRONICALLY SIGNED> ���������������������������������������� By: Kitty Devi ��������������������������������������������� 01/30/19 0733 [id number] 29 Kitty Devi /catrachita
== END ==
LOC: PAIN 06:46
DX: G89.29 Other chronic pain (principal); M16.0 Bilateral primary osteoarthritis of hip; M17.0 Bilateral primary osteoarthritis of knee; M19.041 Primary osteoarthritis, right hand; M19.042 Primary osteoarthritis, left hand; F43.21 Adjustment disorder with depressed mood; Z87.81 Personal history of (healed) traumatic fracture; Z88.8 Allergy status to other drugs, medicaments and biological substances; Z88.2 Allergy status to sulfonamides; Z79.891 Long term (current) use of opiate analgesic; Z79.899 Other long term (current) drug therapy

== ENCOUNTER → 2019-11-25 | Outpatient (CLI) | payer OTHER ==
[~2019-11-25] VITALS: Ht 149.9 cm; Wt 45.5 kg
[~2019-11-25] MED LIST changes: +HYDROCODON-ACE1 EAC7 PO
[2019-11-25 09:45] VITALS: BP 152/76
--- NOTE | 2019-11-25 10:03 | NUR ---
Pain Clinic Assessment: 1. History of Osteoarthritis: HIPS History of Rheumatoid Arthritis: NONE 2. Height: 4 ft. 11 in. 149.9 cm. Weight: 100.4 lb. oz. 45.541 kg. Patient's BMI: 20.3 3. Vital Signs: BP: 152/76 Pulse: 67 Resp: 16 Temp: 02 Sat: 100 ECG Mon: 4. Pain Intensity: 4 5. Fall Risk: Dizziness: Y Needs help standing or walking: Y Fallen in the last 3 months: N Fall risk comments: 6. Patient on Blood Thinner: None 7. History of Hypertension: N 8. Opioid Therapy greater than 6 weeks: Y Opiate Contract Signed: 11/08/18 9. Risk Assessment Tool Provided: 2- LOW 10. Functional Assessment Tool: 11. Recreational Drug Use: Never Drug Type: Tobacco Use: Never Smoker Tobacco Type: Amount or Packs/day: How Many Years: Alcohol Use: Past use Frequency: Quant:
--- NOTE | 2019-11-25 14:51 | HPC ---
[facility] [place] [address] [place] [address] PAIN MANAGEMENT CONSULTATION Name: KASSIE MONTANA Room #: REG LACEY Osmani#: [id number] Admission: 11/25/19 Attend Phys: Kitty Devi Discharge: Date of : 35 Report #: [id number] THIS REPORT FOR: cc: Maurizio Patel MD, Bruce H. MD Hocker,Kitty HOOPER ~ DATE OF SERVICE: 11/25/2019 CHIEF COMPLAINT: Chronic hip pain, status post fracture and lumbar radiculopathy. HISTORY OF PRESENT ILLNESS: This is a pleasant 84-year-old female who returns to the pain clinic today having been absent for almost a year. She has been seeing Dr. Ortiz, who has been managing her pain. She had an implantation of a Nevro spinal cord stimulator in March. Per the reports from their office, it looks like it was beneficial in controlling and improving some of her pain for a while, but then the patient had it removed in June as she states it was not helpful and she did not like the sensation or feeling in her lower back. She continued to have periodic injections as well as acupuncture and health care law specialist through their office. She reports she did not find any of these beneficial in helping her with her low back pain and bilateral leg pain. She continues to have neuropathy in her bilateral feet and has been taking gabapentin for this. She reports her legs do feel weak at times and uses a walker at all times. Today, the patient has returned to our clinic, stating she will no longer be going back to Dr. Ortiz's office. She would like to continue with pain management here through Dr. Garber again. She was reporting a pain score of 4/10. It is characterized by an aching, burning feeling across her lower back and feet, worse with walking and standing. She feels that the medications that she has been taking of hydrocodone and gabapentin are beneficial, but they continue to try her and wean her off her hydrocodone. She feels that she needs tablets at least 3 times a day to be able to function in her daily activities. She reports she does do home exercises and yoga. She tries to be active and walking with her walker, but feels that she needs pain medication to help her with her daily activities. ALLERGIES: SULFA and CELEBREX. CURRENT LIST OF MEDICATIONS: Hydrocodone 5/325 two tablets a day, vitamin D, aspirin, Tylenol Extra Strength, vitamin B12, gabapentin 300 mg at bedtime, fish oil and Os-Cristobal. PQRS: 1. She has osteoarthritic changes in her hips, knees [place] [address] PAIN MANAGEMENT CONSULTATION Name: KASSIE MONTANA Tracy Room #: REG LACEY Keen#: [id number] Admission: 11/25/19 Attend Phys: Kitty Devi Discharge: Date of : 35 Report #: [id number] rheumatoid arthritis. 2. Height is 4 feet 11 inches, weight is 100, BMI is 20. 3. Vital signs: Blood pressure 152/76, pulse is 67, respirations 16, oxygen sat is 100. 4. Pain score is 4/10. 5. Complains of slight dizziness. Does use a walker at all times. Has not fallen in the last 3 months. 6. The patient is not on any blood thinners or medicine for hypertension. Her opioid therapy is greater than 6 weeks; therefore, an opioid signed contract is on the chart. Risk assessment tool is low. Functional assessment is 36/70. 7. Recreational drug use, she denies. She is not a smoker and does not drink alcohol. According to the CDC guidelines, the patient has been filling all of her medications from Dr. Ortiz for her opioids filling them in a timely fashion. They have been slowly tapering her dose. Her last prescription fill was on 10/24/2019 for 60 hydrocodone 5/325. This places her at 10 MMEs per day. PHYSICAL EXAMINATION: GENERAL: This is alert and orientated 84-year-old female who appears her stated age, placing her current pain score today at 4/10. MUSCULOSKELETAL: She has pain that is located in her lumbar spine that radiates into her feet. Complains of burning and stabbing, located in her feet. Lower extremity strength judged to be 4/5 in all major muscle groups. She has a slow antalgic gait, uses a walker at all times. Pain in her right hip, tenderness in her right hip. ASSESSMENT: 1. Chronic right hip pain, status post fracture and repair. 2. Peripheral neuropathy. 3. Situational depression. 4. Lumbar radiculopathy. 5. Failed spinal cord stimulator. 6. Management of medications under terms of written opioid agreement. We reviewed the fact that opiate medications are being used to provide analgesia adequate to support activities of daily living, not attempting to achieve a specific pain score on the 0-10 Visual Analog Scale. The current opiate medications are providing sufficient analgesia to allow the patient to participate in activities of daily living. The patient is not exhibiting any aberrant behavior suggestive of drug diversion. The patient is not having any adverse reactions to medications. The patient is not suffering from daytime somnolence or mental acuity changes. The patient is managing opiate-induced constipation with appropriate ipch-mrc-prfsnkh agents and dietary considerations. The patient was counseled on concern for caution with operating a motor vehicle while using opiate medications. [facility] [address] [place] [address] PAIN MANAGEMENT CONSULTATION Name: KASSIE MONTANA Room #: REG [facility].#: [id number] Admission: 11/25/19 Attend Phys: Kitty Devi Discharge: Date of : 35 Report #: [id number] PLAN: 1. We discussed treatment options with the patient today. The patient is wanting to return to our clinic for medication management. She feels that she made a mistake and going and having her spinal cord stimulator placed. It was not beneficial in controlling her pain, so she did have it removed, currently on medication management since injections were not beneficial as well. The patient is currently taking hydrocodone 5/325. We will refill this for #90 allowing her 3 tablets a day. These will be sent electronically by Dr. Panfilo Garber. I explained to the patient that we will have her return in 1 month for a followup to see how she is doing. In the past, the patient was taking hydrocodone 10/325 tablets from our clinic. 2. The patient is encouraged to continue her gabapentin 300 mg, she takes this at bedtime. She states she recently increased this to this dose. She has been having a slight dizziness at times. Hopefully, this will subside with her being on it longer. We may try to increase this in the morning to see if she has some benefit in decreasing her burning feet, that we do not want her to be dizzy and fall. We also discussed the possible rotation to [place], but we will discuss this further at her next visit. 3. The patient did sign a new opioid agreement with our clinic as well as gave a urine specimen for a drug screen. The patient will be turned in 1 month for followup. The patient is seen today in collaboration with Dr. Panfilo Garber. <ELECTRONICALLY SIGNED> By: Kitty Devi 11/25/19 1451 [id number] Kitty Devi /nt
== END ==
LOC: PAIN 11-22 13:31
DX: M54.16 Radiculopathy, lumbar region (principal); G62.9 Polyneuropathy, unspecified; F32.9 Major depressive disorder, single episode, unspecified; Z87.81 Personal history of (healed) traumatic fracture; Z88.2 Allergy status to sulfonamides; Z88.8 Allergy status to other drugs, medicaments and biological substances; Z79.891 Long term (current) use of opiate analgesic

== ENCOUNTER → 2019-12-23 | Outpatient (CLI) | payer OTHER ==
[~2019-12-23] VITALS: Ht 149.9 cm; Wt 45.0 kg
[~2019-12-23] MED LIST changes: +DURAGESIC1 EACH TRANSDERM
--- NOTE | ~2019-12-23 | HPC ---
[facility] [place] [address] [address] PAIN MANAGEMENT CONSULTATION Name: KASSIE MONTANA Room #: REG LACEY Angela.#: [id number] Admission: 12/23/19 Attend Phys: Panfilo Garber MD Discharge: Date of : 35 Report #: [id number] THIS REPORT FOR: cc: Maurizio Patel MD, Bruce H. MD Morgan, Richard L. MD ~ CC: Maurizio Garber DATE OF SERVICE: 12/23/2019 Followup visit for chronic hip pain status post fracture, lumbar radiculopathy. The patient returns to pain clinic today to discuss further medication management options. She has been followed by [facility] for the last year or two and has had lots of different injections and a spinal cord stimulator placed. None of that has helped. She has found that her best relief comes with hydrocodone and she is now taking hydrocodone 5/325 every 8 hours. She finds that it helps, but it does not last very long. She does not have much in the way of side effects. We discussed them individually and carefully. She does not feel dizzy or lightheaded or confused. She has not fallen. She has had mild constipation, but finds that certain foods help. We discussed this at some length and recommendations were made at the end of her visit. We talked about all of her medicines and different trials. She has had no relief with nonsteroidal anti-inflammatory drugs, gets a little bit relief with Tylenol, but not like the hydrocodone. She takes gabapentin 300 mg at bedtime but cannot take it during the day because of dizziness. PQRS: Positive for osteoarthritis of the hips and she is very small. Her normal weight 99 pounds with a BMI of 20. Blood pressure is 132/61, heart rate 71, respirations 14, O2 sat is 100, pain intensity 5/10. She is considered a fall risk, but has not fallen in the last 3 months. She denies use of blood thinners. She is not hypertensive. She is on an opioid agreement, signed first in 2019 and we have reviewed the terms of safeguarding these medications. She is at low risk for addiction scoring 2 on the ORT. Functional assessment score is 36. She denies tobacco and alcohol. PHYSICAL EXAMINATION: GENERAL: Pleasant elderly female, alert and oriented. She gives a good history. She moves independently from sitting to standing position, walks with a walker. She does not lean upon her walker, but uses it more for stability. CHEST: Clear. CARDIAC: [place] [address] PAIN MANAGEMENT CONSULTATION Name: KASSIE MONTANA Room #: REG [facility] Osmani#: [id number] Admission: 12/23/19 Attend Phys: Panfilo Garber MD Discharge: Date of : 35 Report #: [id number] ABDOMEN: Soft. MUSCULOSKELETAL: Examination of the spine reveals tenderness across the lumbosacral segment. She does have some radiating pain that she describes as burning into her feet. Straight leg raising and movement of the hips in internal and external rotation causes some discomfort. IMPRESSION: 1. Chronic right hip pain status post fracture and repair. 2. Peripheral neuropathy. 3. Lumbar radiculopathy. 4. Failed spinal cord stimulator. 5. Management of opioid medications under terms of written opioid agreement. I have ordered fentanyl patches 12 mcg q. 72 hours. Discussed the use of these medicines at some length and there will be some instructions also within the box. A total of 5 patches will be provided along with her hydrocodone electronically. If the patches are effective, we will prescribe another month for her. I would just assume; however, not come back into the pain clinic until January when hopefully we will have lifted restrictions from the COVID-19 virus. I talked about the importance of being careful, safeguarding herself, and socially distancing herself. She is being very cautious. By: 1233 1401 Panfilo Garber MD /nt
[2019-12-23 10:30] VITALS: BP 132/61
--- NOTE | 2019-12-23 10:38 | NUR ---
Pain Clinic Assessment: 1. History of Osteoarthritis: HIPS History of Rheumatoid Arthritis: NONE 2. Height: 4 ft. 11 in. 149.9 cm. Weight: 99.2 lb. oz. 44.997 kg. Patient's BMI: 20.0 3. Vital Signs: BP: 132/61 Pulse: 71 Resp: 14 Temp: 02 Sat: 100 ECG Mon: 4. Pain Intensity: 5 5. Fall Risk: Dizziness: Y Needs help standing or walking: Y Fallen in the last 3 months: N Fall risk comments: 6. Patient on Blood Thinner: None 7. History of Hypertension: N 8. Opioid Therapy greater than 6 weeks: Y Opiate Contract Signed: 11/08/18 9. Risk Assessment Tool Provided: 2- LOW 10. Functional Assessment Tool: 11. Recreational Drug Use: Never Drug Type: Tobacco Use: Never Smoker Tobacco Type: Amount or Packs/day: How Many Years: Alcohol Use: Past use Frequency: Quant:
== END ==
LOC: PAIN 06:44
DX: M16.0 Bilateral primary osteoarthritis of hip (principal); M54.12 Radiculopathy, cervical region; F11.20 Opioid dependence, uncomplicated; M54.16 Radiculopathy, lumbar region; G62.9 Polyneuropathy, unspecified; Z79.899 Other long term (current) drug therapy

== ENCOUNTER → 2020-01-13 | Outpatient (CLI) | payer OTHER ==
[~2020-01-13] MED LIST changes: +NEURONTIN 300300 M1 PO; +SENNO8.6 MG PO
--- NOTE | 2020-01-14 10:55 | HPC ---
[facility] [place] [address] [place] [address] PAIN MANAGEMENT CONSULTATION Name: KASSIE MONTANA Room #: REG LACEY Julio César.#: [id number] Admission: 01/13/20 Attend Phys: Kitty Devi Discharge: Date of : 35 Report #: [id number] THIS REPORT FOR: cc: Maurizio Patel MD, Bruce H. MD Hocker,Kitty HOOPER ~ CC: Panfilo Garber MD DATE OF SERVICE: 01/13/2020 This is a Telemedicine appointment due to the COVID virus from 9:30-9:55. CHIEF COMPLAINT: Chronic hip pain, status post fracture and lumbar radiculopathy. HISTORY OF PRESENT ILLNESS: This is a pleasant 84-year-old female who I am doing a Telemedicine phone conference with her today due to the COVID virus and the fact that the patient is quite elderly and we do not want her to be out during this time. The patient is answering all my questions completely over the phone. She is a very good historian. Today, she is reporting to me that her pain score is 4/10. Dr. Panfilo Garber had prescribed a fentanyl patch for her on 12/23/2019. It was for a trial for 2 weeks of 12 mcg. The patient did call our office 2 weeks ago and reported that she was sleeping all day long and quite dizzy. She reports that she was dizzy throughout the day and her pain was unchanged. At that time the nurse told her to remove the fentanyl patches, which she had trialled for 2 weeks and continue her hydrocodone, which the patient has done. The patient reports that she had increased burning throughout her entire body once she did remove the fentanyl patch, but that has subsided. Today, she continues to have ongoing pain in her lower back and bilateral feet and her right sacroiliac joint area. The patient reports that she is using Epson salt and blue emu on her feet, which has been beneficial as well as her hydrocodone. The patient does not report any falls during the time when she was so sleepy and dizzy of the fentanyl patch. She does use her walker at all times. She does feel unsteady if she is not using her walker. She reports that during this outbreak of COVID, she still continues to walk outside with the aid of her walker. She denies any problems with constipation as a result of any of her opioid medications. ALLERGIES: SULFA AND CELEBREX. CURRENT LIST OF MEDICATIONS: Hydrocodone 5/325, vitamin D, aspirin, Tylenol Extra Strength, vitamin B12, fish oil, [place] [address] PAIN MANAGEMENT CONSULTATION Name: KASSIE MONTANA Room #: REG [facility] Osmani#: [id number] Admission: 01/13/20 Attend Phys: Kitty Devi Discharge: Date of : 35 Report #: [id number] PQRS: 1. She does have osteoarthritis in her hips and hands. Denies any rheumatoid arthritis. 2. Height and weight and vital signs were deferred since this is a Telemedicine appointment. Pain score is 4/10. 3. Fall risk. Complains of dizziness, does use a walker at all times, though she has not fallen in the last 3 months. The patient is not on any blood thinners or medicine for hypertension. Her opioid therapy is greater than 6 weeks; therefore, an opioid signed contract is on her chart. Risk assessment is low. Functional assessment is 36/70. 4. Recreational drug use, she denies. She is not a smoker and does not drink alcohol. According to the prescription monitoring system, the patient last filled her medicines on 12/22 and will fill them later this week of the medicines we prescribed. Her morphine mEq is 20 MME. PHYSICAL EXAMINATION: This is a review of system due to a Telemedicine conference. GENERAL: This is alert and orientated, very pleasant 84-year-old female. She is completing all sentences completely and is a good historian. HEENT: The patient is not hard of hearing. The patient reports no difficulties seeing as well. MUSCULOSKELETAL: The patient reports she is using her walker at all times, feeling slightly unsteady. Does need to stand up using the armrest of a chair and walks with a slow gait with a walker at all times. The patient complains of burning feet. IMPRESSION: 1. Chronic right hip pain, status post fracture and repair. 2. Peripheral neuropathy. 3. Lumbar radiculopathy. 4. Failed spinal cord stimulator. 5. Management of opioid medications under terms of written opioid agreement. We reviewed the fact that opiate medications are being used to provide analgesia adequate to support activities of daily living, not attempting to achieve a specific pain score on the 0-10 Visual Analog Scale. The current opiate medications are providing sufficient analgesia to allow the patient to participate in activities of daily living. The patient is not exhibiting any aberrant behavior suggestive of drug diversion. The patient is not having any adverse reactions to medications. The patient is not suffering from daytime somnolence or mental acuity changes. The patient is managing opiate-induced constipation with appropriate xxqd-ikx-ywosmxu agents and dietary considerations. The patient was counseled on concern for caution with operating a motor vehicle while using opiate medications. [address] [address] PAIN MANAGEMENT CONSULTATION Name: KASSIE MONTANA Room #: REG LACEY Keen#: [id number] Admission: 01/13/20 Attend Phys: Kitty Devi Discharge: Date of : 35 Report #: [id number] PLAN: 1. We discussed treatment options today. I believe that it is best for the patient to remain off her fentanyl patch and she experienced significant daytime sleepiness as well as dizziness. We do not want the patient to fall as a result of the medications that we have prescribed for her. Also, she did not experience a decrease in pain as a result of the medication. 2. We discussed her hydrocodone pills in length. In the past the patient had been on 10/325 tablets up to 3 times a day. We are willing to increase her slightly today, but not to that point. After discussion with Dr. Panfilo Garber, we decided to offer her hydrocodone 5/325 up to 4 tablets a day. The patient may take one 4 times a day or 1-1/2 pills 2 times a day with the other dose being a single 5/325. The patient verbalized understanding of this. She will trial this medicine for the next month. 3. The patient reports she still is occasionally dizzy upon standing in the morning. She does take 300mg of gabapentin at bedtime. I encouraged her to take this slightly earlier in the evening to see if those symptoms subside in the morning. The patient verbalizes understanding. 4. The patient was discussed for Telemedicine conference with Dr. Panfilo Garber who is here present in the office today in collaboration. Patient will return in 1 month. <ELECTRONICALLY SIGNED> By: Kitty Devi 01/14/20 1055 1050 1149 Kitty Devi /nt
== END ==
LOC: PAIN 01-10 12:14 → TELEPC 06:47
DX: M54.16 Radiculopathy, lumbar region (principal); M25.551 Pain in right hip; G62.9 Polyneuropathy, unspecified; F11.20 Opioid dependence, uncomplicated; T85.112A Breakdown (mechanical) of implanted electronic neurostimulator of spinal cord electrode (lead), initial encounter; Z87.81 Personal history of (healed) traumatic fracture; Z88.2 Allergy status to sulfonamides; Z88.8 Allergy status to other drugs, medicaments and biological substances; Z79.899 Other long term (current) drug therapy

== ENCOUNTER → 2020-02-13 | Outpatient (CLI) | payer OTHER ==
[~2020-02-13] VITALS: Ht 149.9 cm; Wt 44.3 kg
[~2020-02-13] MED LIST changes: -B12INJ IM; +GRALISE300 MG PO; +VITAMIN B-121000 MC3 PO
[2020-02-13 10:08] VITALS: BP 138/78
--- NOTE | 2020-02-13 10:15 | NUR ---
Pain Clinic Assessment: 1. History of Osteoarthritis: HIPS Left Upper Extremity Right Upper Extremity Right Lower Extremity History of Rheumatoid Arthritis: NONE 2. Height: 4 ft. 11 in. 149.9 cm. Weight: 97.6 lb. oz. 44.271 kg. Patient's BMI: 19.7 3. Vital Signs: BP: 138/78 Pulse: 72 Resp: 14 Temp: 02 Sat: 99 ECG Mon: 4. Pain Intensity: 5-6 5. Fall Risk: Dizziness: N Needs help standing or walking: Y Fallen in the last 3 months: N Fall risk comments: 6. Patient on Blood Thinner: None 7. History of Hypertension: N 8. Opioid Therapy greater than 6 weeks: Y Opiate Contract Signed: 11/08/18 9. Risk Assessment Tool Provided: 2- LOW 10. Functional Assessment Tool: 11. Recreational Drug Use: Never Drug Type: Tobacco Use: Never Smoker Tobacco Type: Amount or Packs/day: How Many Years: Alcohol Use: Past use Frequency: Quant:
--- NOTE | 2020-02-13 15:50 | HPC ---
[facility] [place] [address] [place] [address] PAIN MANAGEMENT CONSULTATION Name: KASSIE MONTANA Room #: REG LACEY Julio César.#: [id number] Admission: 02/13/20 Attend Phys: Kitty Devi Discharge: Date of : 35 Report #: [id number] THIS REPORT FOR: cc: Maurizio Patel MD, Bruce H. MD Hocker,Kitty HOOPER ~ CC: Panfilo Garber MD DATE OF SERVICE: 02/13/2020 CHIEF COMPLAINT: Chronic hip pain, status post fracture and lumbar radiculopathy. HISTORY OF PRESENT ILLNESS: This is a very pleasant 84-year-old female who returns to the pain clinic today for a refill of her opioid medications. She continues to complain about her ongoing neuropathy, most specifically a burning intense pain in her feet and legs. She does also complain of pain in her right hip that radiates into her buttocks and her lumbar radiculopathy. She is rating her pain score at 5-6 today, worse with any standing and walking, though she does continue to be as active as possible despite her pain, walking with her walker at least half a mile every day. She would like to go back and exercise at her local gym, but due to the coronavirus they has been closed. The patient tells me that lying down and elevating her legs is also beneficial. Today, she is requesting refills of her medication. She states that she does have some problems with constipation, but uses prune juice and slow movement tea . She found that the Senokot was not beneficial for her. ALLERGIES: SULFA and CELEBREX. CURRENT LIST OF MEDICATIONS: Hydrocodone 5/325 p.r.n., gabapentin 300 mg at dinner, vitamin D, aspirin, Tylenol Extra Strength, vitamin B12 and fish oil. PQRS: 1. She has significant osteoarthritis in her hips and upper and lower extremities as well as her hands. She denies any rheumatoid arthritis. 2. Height is 4 feet 11 inches, weight is 97, BMI is 19. 3. Vital signs 138/78, pulse is 72, respirations 14, oxygen sat is 99. 4. Pain score is 5-6. 5. Denies dizziness. Does use a walker at all times and has not fallen in the last 3 months. 6. The patient is not on any blood thinners or medicine for hypertension. 7. Opioid therapy is greater than 6 weeks; therefore, an opioid signed contract is on the chart. Risk assessment is low. Functional assessment is 36/70. 8. Recreational drug use, she denies. She is not a smoker and does not drink alcohol. [address] [address] PAIN MANAGEMENT CONSULTATION Name: ROSALINDTEREZA VASQUEZGrzegorz Molina Room #: REG CLEstuardo Keen#: [id number] Admission: 02/13/20 Attend Phys: Kitty Devi Discharge: Date of : 35 Report #: [id number] According to the prescription monitoring system, the patient is filling appropriately and is due to fill her medications today. According to the CDC guidelines, her morphine mEq is 20. There is a recent drug screen on the chart that is appropriate for her medications. PHYSICAL EXAMINATION: GENERAL: This is alert and orientated, very pleasant 84-year-old female who appears her stated age, placing her current pain score from 5-6. She is a good historian. HEENT: Normocephalic, atraumatic. Extraocular eye muscles are intact. She is wearing a mask today. MUSCULOSKELETAL: Examination of the spine reveals tenderness in the lumbosacral segment, radiating pain that she describes as burning into her feet most significantly in her right. Straight leg raising and movement of her hips, internal and external rotation does cause some discomfort. She does have a walker that she uses at all times. She moves independently from the sitting to standing position and does have a slightly antalgic gait. IMPRESSION: 1. Chronic right hip pain, status post fracture and repair. 2. Peripheral neuropathy. 3. Lumbar radiculopathy. 4. Failed spinal cord stimulator. 5. Management of opioid medications under terms of written agreement. We reviewed the fact that opiate medications are being used to provide analgesia adequate to support activities of daily living, not attempting to achieve a specific pain score on the 0-10 Visual Analog Scale. The current opiate medications are providing sufficient analgesia to allow the patient to participate in activities of daily living. The patient is not exhibiting any aberrant behavior suggestive of drug diversion. The patient is not having any adverse reactions to medications. The patient is not suffering from daytime somnolence or mental acuity changes. The patient is managing opiate-induced constipation with appropriate zppb-gki-vlmicpv agents and dietary considerations. The patient was counseled on concern for caution with operating a motor vehicle while using opiate medications. A physical exam was performed and the patient's functional status was evaluated. All patients with back pain were advised against the bed rest greater than 4 days and were advised to return to normal activities. Pain score assessment was noted and the treatment plan was reviewed with the patient. All current medications, both prescribed and OTC were reviewed and reconciled on the electronic medical record. Tobacco screening was accomplished and smoking cessation was advised when indicated. BMI was noted and diet/exercise modification was recommended for all patients following outside normal parameters. [address] [address] PAIN MANAGEMENT CONSULTATION Name: KASSIE MONTANA Room #: REG [facility]#: [id number] Admission: 02/13/20 Attend Phys: Kitty HOOPER Shandra Discharge: Date of : 35 Report #: [id number] I reviewed with the patient today their responsibilities to safeguard prescription medications, reviewed their responsibility to utilize medications only as prescribed by the physician. They are to seek and receive pain medications only from 1 physician group ( [facility]). They are to use 1 pharmacy and keep the clinic informed if they change pharmacies. Their responsibilities include making followup visits in a timely fashion and to avoid abrupt discontinuation of medication usage. Their responsibilities further include bringing their medications (bottles from the pharmacy with residual pills) to the visit for possible confirmation of pill counts and the patient understands it is their responsibility to submit to random drug screens to ensure both that the medications prescribed are present, and that no other controlled substances are present. All prescriptions provided today were generated electronically. PLAN: 1. We discussed treatment options with the patient today. The patient finds the gabapentin beneficial, but is unable to take this medication during the day due to side effects of dizziness. The patient feels that it is very beneficial in helping with her burning pain. We will rotating her to Gralise, since the gabapentin has been beneficial but she in unable to tolerate the daytime somulance. We believe that the 24-hour medication taking it at dinner will diminish some of those dizziness sensations. It will help with her peripheral neuropathy, in her legs and feet. Scripts will be written for Gralise 300 mg tablets. The patient instructed to stop the gabapentin and take this medication at dinner time. The patient instructed to call if she has any side effects of this medication. Scripts sent electronically to her pharmacist. 2. We will have Dr. Panfilo Garber send her hydrocodone , #120 to her pharmacy for 1 month. 3. The patient will follow up with us in 1 month time period to evaluate her Gralise but as stated, she will call if she is having issues. <ELECTRONICALLY SIGNED> By: Kitty Devi 02/13/20 1550 1037 1102 Kitty Devi /nt
== END ==
LOC: PAIN 06:41
DX: Z76.0 Encounter for issue of repeat prescription (principal); M25.551 Pain in right hip; G62.9 Polyneuropathy, unspecified; G89.29 Other chronic pain

== ENCOUNTER → 2020-03-12 | Outpatient (CLI) | payer OTHER ==
[~2020-03-12] VITALS: Ht 149.9 cm; Wt 44.1 kg
[2020-03-12 10:03] VITALS: BP 130/66
--- NOTE | 2020-03-12 10:15 | NUR ---
Pain Clinic Assessment: 1. History of Osteoarthritis: HIPS Left Upper Extremity Right Upper Extremity Right Lower Extremity History of Rheumatoid Arthritis: NONE 2. Height: 4 ft. 11 in. 149.9 cm. Weight: 97.2 lb. oz. 44.089 kg. Patient's BMI: 19.6 3. Vital Signs: BP: 130/66 Pulse: 66 Resp: 14 Temp: 02 Sat: 100 ECG Mon: 4. Pain Intensity: 7 5. Fall Risk: Dizziness: N Needs help standing or walking: Y Fallen in the last 3 months: N Fall risk comments: 6. Patient on Blood Thinner: None 7. History of Hypertension: N 8. Opioid Therapy greater than 6 weeks: Y Opiate Contract Signed: 11/08/18 9. Risk Assessment Tool Provided: 2- LOW 10. Functional Assessment Tool: 11. Recreational Drug Use: Never Drug Type: Tobacco Use: Never Smoker Tobacco Type: Amount or Packs/day: How Many Years: Alcohol Use: Past use Frequency: Quant:
--- NOTE | 2020-03-13 09:05 | HPC ---
[facility] [place] [address] [place] [address] PAIN MANAGEMENT CONSULTATION Name: KASSIE MONTANA Room #: REG LACEY Julio César.#: [id number] Admission: 03/12/20 Attend Phys: Kitty Devi Discharge: Date of : 35 Report #: [id number] THIS REPORT FOR: cc: Maurizio Patel MD, Bruce H. MD Hocker,Kitty HOOPER ~ CC: Panfilo Garber MD DATE OF SERVICE: 03/12/2020 CHIEF COMPLAINT: Chronic hip pain, status post fracture and lumbar radiculopathy and neuropathy. HISTORY OF PRESENT ILLNESS: This is a very pleasant 84-year-old female who returns to the pain clinic today complaining of increased neuropathy in her feet, left greater than the right. She visited with us 1 month ago and we had prescribed Gralise as a trial since she was having daytime somnolence from her gabapentin. She believes that the Gralise has not been as effective as shorter acting gabapentin and she would like to return to her gabapentin, wondering if she is able to increase her daytime dose. The patient reports that she feels that her hydrocodone is not as strong and is beneficial as it had been in the past. Today, she is reporting a pain score of 7/10. Again, most of her pain is in her right hip and buttock and bilateral feet. She does have pain in her shins as well. It is a burning, constant, aching pain, worse with any activity and standing, though she does exercise and walk around the block on a daily basis. She believes that heat and lying down and elevating her legs have been beneficial. ALLERGIES: SULFA and CELEBREX. CURRENT LIST OF MEDICATIONS: Hydrocodone 5/325 four times a day, Gralise 300 mg at bedtime, Senokot, slow movement tea, vitamin D, aspirin, B12, and fish oil. PQRS: 1. The patient has osteoarthritis in her hips and upper and lower extremities. Denies any rheumatoid arthritis. 2. Height is 4 feet 11 inches, weight is 97, BMI is 19. 3. Vital signs 130/66, pulse is 66, respirations 14, oxygen sat is 100. 4. Pain score is 7/10. 5. Denies dizziness, does use a walker for ambulation, has not fallen in the last 3 months. 6. The patient is not on any blood thinners or medicine for hypertension. 7. Opiate therapy is greater than 6 weeks; therefore, an opioid signed contract is on the chart. Risk assessment is low. Functional assessment is 36/70. 8. Recreational drug use, she denies. She is not a smoker and does not drink alcohol. [address] [address] PAIN MANAGEMENT CONSULTATION Name: ROSALINDTEREZA VASQUEZGrzegorz Molina Room #: REG LACEY Keen#: [id number] Admission: 03/12/20 Attend Phys: Kitty RUFUS Devi Discharge: Date of : 35 Report #: [id number] According to the prescription monitoring system, the patient is due to fill her medications this week, filling them in a timely fashion. According to the CDC guidelines, her morphine milliequivalent is 20 MMEs. PHYSICAL EXAMINATION: GENERAL: This is a well-developed, well-nourished, very pleasant, 84-year-old, alert and orientated female, placing her pain score at 7/10 today. She is a good historian. HEENT: Normocephalic, atraumatic. Extraocular eye muscles are intact. She is wearing a mask today as well as glasses. MUSCULOSKELETAL: She has tenderness in the lumbosacral region that radiates into her right hip as well as pain that radiates down her bilateral legs with increased pain in her shins and burning tingly in her feet. Straight leg raising and movement of her hip of internal and external rotation does cause some discomfort. She does use a walker at all times. She has a slightly antalgic gait. IMPRESSION: 1. Chronic right hip pain, status post fracture and repair. 2. Peripheral neuropathy. 3. Lumbar radiculopathy. 4. Failed spinal cord stimulator. 5. Management of high risk medications under terms of written opioid agreement. We reviewed the fact that opiate medications are being used to provide analgesia adequate to support activities of daily living, not attempting to achieve a specific pain score on the 0-10 Visual Analog Scale. The current opiate medications are providing sufficient analgesia to allow the patient to participate in activities of daily living. The patient is not exhibiting any aberrant behavior suggestive of drug diversion. The patient is not having any adverse reactions to medications. The patient is not suffering from daytime somnolence or mental acuity changes. The patient is managing opiate-induced constipation with appropriate exso-okp-skrppki agents and dietary considerations. The patient was counseled on concern for caution with operating a motor vehicle while using opiate medications. PLAN: 1. We discussed treatment options with the patient today. The patient believes that the Gralise was not beneficial. She feels that the gabapentin gave her greater relief of her neuropathy in her feet. Today, we decided to trial her gabapentin again continuing her 300 at bedtime. The patient then instructed to start at 100 mg tablets in the morning for a week. If she denies any dizziness or subside, but her pain returns, she may increase this to 200 mg in the morning and 300 at night, again trying this for 1 week. If her pain continues, she may increase to a max dose of 300 in the morning and 300 at night. [facility] [address] [place] [address] PAIN MANAGEMENT CONSULTATION Name: KASSIE MONTANA Room #: REG [facility].#: [id number] Admission: 03/12/20 Attend Phys: Kitty Devi Discharge: Date of : 35 Report #: [id number] patient is to call our office if she does have any significant side effects. The patient instructed to use her walker at all times. The patient states she has plenty of medications at home of her gabapentin and is not needing fills of this medication today. 2. We will continue her hydrocodone 5/325. The patient was wondering about a slight increase. I explained to her I do not want to change 2 medications at the same time. We will try to increase her gabapentin first and then discuss a higher dose of hydrocodone if her pain is not relieved from the gabapentin. 3. The patient also encouraged to go to a foot store to be evaluated for different shoes that may put pressure on different parts of her foot since she does complain of significant heel pain. Her shoes are greater than 2 years old and this may also be causing some of her discomfort. 4. The patient is seen today in collaboration with Dr. Panfilo Garber. <ELECTRONICALLY SIGNED> By: Kitty Devi 03/13/20 0905 1051 1145 Kitty estes
== END ==
LOC: PAIN 07:57
PROVIDERS: ATTEND Clinical Nurse Specialist Adult Health
DX: M25.551 Pain in right hip (principal); G62.9 Polyneuropathy, unspecified; M54.16 Radiculopathy, lumbar region; F11.20 Opioid dependence, uncomplicated; M96.1 Postlaminectomy syndrome, not elsewhere classified; Z88.2 Allergy status to sulfonamides; Z88.8 Allergy status to other drugs, medicaments and biological substances; Z79.899 Other long term (current) drug therapy

== ENCOUNTER → 2020-05-11 | Outpatient (CLI) | payer OTHER ==
[~2020-05-11] VITALS: Ht 149.9 cm; Wt 43.5 kg
[2020-05-11 13:11] VITALS: BP 128/58
--- NOTE | 2020-05-11 13:17 | NUR ---
Pain Clinic Assessment: 1. History of Osteoarthritis: HIPS Left Upper Extremity Right Upper Extremity Right Lower Extremity History of Rheumatoid Arthritis: NONE 2. Height: 4 ft. 11 in. 149.9 cm. Weight: 96.0 lb. oz. 43.545 kg. Patient's BMI: 19.4 3. Vital Signs: BP: 128/58 Pulse: 72 Resp: 18 Temp: 02 Sat: 96 ECG Mon: 4. Pain Intensity: 5 5. Fall Risk: Dizziness: Y Needs help standing or walking: N Fallen in the last 3 months: N Fall risk comments: 6. Patient on Blood Thinner: None 7. History of Hypertension: N 8. Opioid Therapy greater than 6 weeks: Y Opiate Contract Signed: 11/08/18 9. Risk Assessment Tool Provided: 2- LOW 10. Functional Assessment Tool: 11. Recreational Drug Use: Never Drug Type: Tobacco Use: Never Smoker Tobacco Type: Amount or Packs/day: How Many Years: Alcohol Use: Past use Frequency: Quant:
--- NOTE | 2020-05-11 15:38 | HPC ---
[facility] [place] [address] [place] [address] PAIN MANAGEMENT CONSULTATION Name: KASSIE MONTANA Room #: REG EZEQUIELEstuardo Angela.#: [id number] Admission: 05/11/20 Attend Phys: Kitty Devi Discharge: Date of : 35 Report #: [id number] THIS REPORT FOR: cc: Maurizio Patel MD, Bruce H. MD Hocker,Kitty HOOPER ~ CC: Panfilo Garber MD DATE OF SERVICE: 05/11/2020 CHIEF COMPLAINT: Chronic hip pain, status post fracture and lumbar radiculopathy. HISTORY OF PRESENT ILLNESS: This is a very pleasant 85-year-old female who returns to the pain clinic today for refill of her hydrocodone medicine. The patient reports that she has recently started physical therapy at [facility]. She has been going 2 times a week for the last several weeks. He has been teaching her exercises to help strengthen her right leg and in doing so, she believes that her hip pain has been decreasing. The patient is very happy about this. The patient continues to walk outside and feels like she is having less pain in doing so as a result of her therapy. She does complain of continued burning in her feet and takes gabapentin as well. Today, she is reporting her pain score of 5/10. She uses her walker at all times and would like a refill of her hydrocodone today. ALLERGIES: SULFA AND CELEBREX. CURRENT LIST OF MEDICATIONS: Hydrocodone 5/325 q.i.d. p.r.n., Senokot, Neurontin 300 mg at bedtime, Neurontin 100 mg in the morning, vitamin D, aspirin, Tylenol Extra Strength, vitamin B, fish oil. PQRS: 1. She has osteoarthritis of her hips and upper and lower extremities. Denies any rheumatoid arthritis. 2. Height is 4 feet 11 inches, weight is 96 pounds, BMI is 19. Vital signs 128/58, pulse is 72, respirations 18, oxygen sat is 96%. 3. Pain score is 5/10. Complains of slight dizziness and uses a walker at all times. She has not fallen in the last 3 months. The patient is not on any blood thinners, but does not take medicine for hypertension. Opioid therapy is greater than 6 weeks; therefore, an opioid signed contract is on the chart. Risk assessment is low. Functional assessment is 36/70. 4. Recreational drug use, she denies. She is not a smoker and does not drink alcohol. According to the prescription monitoring system, the patient is filling appropriately with her medications. Her morphine mEq according to the [address] [address] PAIN MANAGEMENT CONSULTATION Name: KASSIE MONTANA Room #: REG [facility] Osmani#: [id number] Admission: 05/11/20 Attend Phys: Kitty Devi Discharge: Date of : 35 Report #: [id number] guidelines is 20. There is a recent drug screen on the chart that is appropriate as well. PHYSICAL EXAMINATION: GENERAL: This is alert and orientated, well-developed, well-nourished 85-year-old female who appears her stated age, placing her current pain score at 5/10 today. She is a good historian. HEENT: Normocephalic, atraumatic. Extraocular eye muscles are intact. Sclerae are nonintrinsic. She is wearing a mask as well as glasses. MUSCULOSKELETAL: She has tenderness in her lumbosacral region. She has burning sensation in her bilateral feet. She has a slightly antalgic gait. She does use a walker at all times. Lower extremity strength judged to be 5/5 in all major muscle groups. IMPRESSION: 1. Chronic hip pain, status post fracture and repair. 2. Peripheral neuropathy. 3. Lumbar radiculopathy. 4. Failed spinal cord stimulator. 5. Management of high risk medications under terms of written opioid agreement. We reviewed the fact that opiate medications are being used to provide analgesia adequate to support activities of daily living, not attempting to achieve a specific pain score on the 0-10 Visual Analog Scale. The current opiate medications are providing sufficient analgesia to allow the patient to participate in activities of daily living. The patient is not exhibiting any aberrant behavior suggestive of drug diversion. The patient is not having any adverse reactions to medications. The patient is not suffering from daytime somnolence or mental acuity changes. The patient is managing opiate-induced constipation with appropriate sawx-xbd-djkiufe agents and dietary considerations. The patient was counseled on concern for caution with operating a motor vehicle while using opiate medications. PLAN: 1. We discussed treatment options with the patient today. The patient finds her physical therapy has been very helpful and has reduced some of her right hip pain. We discussed to continue her therapy as well as her exercises at home, encouraging her that if her pain does decrease we may be able to decrease her hydrocodone as well. The patient does not like being dependent on this medication. 2. We did spend some time talking about decreasing her medicines slightly if she is able to go longer each day before she needs her next medication encouraging her to keep track. She does not like again to be dependent on her opioid medications. 3. We discussed her occasional constipation. I encouraged the [facility] [address] [place] [address] PAIN MANAGEMENT CONSULTATION Name: KASSIE MONTANA Room #: REG [facility]#: [id number] Admission: 05/11/20 Attend Phys: Kitty Devi Discharge: Date of : 35 Report #: [id number] patient to drink plenty of liquids, take kfck-stf-etxvkgv stool softeners for her constipation and again reiterated that if she is able to decrease her opioid use slightly, her constipation may improve. 4. We will see her back in 2 months and evaluate her medications at that time. I encouraged the patient to continue her gabapentin from Dr. Dalton for her neuropathy. <ELECTRONICALLY SIGNED> By: Kitty Devi 05/11/20 [id number] [id number] Kitty Devi /nt
== END ==
LOC: PAIN 07:08
PROVIDERS: ATTEND Clinical Nurse Specialist Adult Health
DX: Z76.0 Encounter for issue of repeat prescription (principal); M54.16 Radiculopathy, lumbar region; G89.29 Other chronic pain; G62.9 Polyneuropathy, unspecified; Z79.891 Long term (current) use of opiate analgesic

== ENCOUNTER → 2020-07-16 | Outpatient (CLI) | payer OTHER ==
[~2020-07-16] VITALS: Ht 149.9 cm; Wt 43.8 kg
[~2020-07-16] MED LIST changes: +CENTRUM SILVER1 EACH PO
[2020-07-16 09:56] VITALS: BP 123/57
--- NOTE | 2020-07-16 10:16 | NUR ---
Pain Clinic Assessment: 1. History of Osteoarthritis: HIPS Left Upper Extremity Right Upper Extremity Right Lower Extremity History of Rheumatoid Arthritis: NONE 2. Height: 4 ft. 11 in. 149.9 cm. Weight: 96.6 lb. oz. 43.817 kg. Patient's BMI: 19.5 3. Vital Signs: BP: 123/57 Pulse: 75 Resp: 14 Temp: 02 Sat: 98 ECG Mon: 4. Pain Intensity: 3 5. Fall Risk: Dizziness: Y Needs help standing or walking: Y Fallen in the last 3 months: N Fall risk comments: 6. Patient on Blood Thinner: None 7. History of Hypertension: N 8. Opioid Therapy greater than 6 weeks: Y Opiate Contract Signed: 11/08/18 9. Risk Assessment Tool Provided: 2- LOW 10. Functional Assessment Tool: 11. Recreational Drug Use: Never Drug Type: Tobacco Use: Never Smoker Tobacco Type: Amount or Packs/day: How Many Years: Alcohol Use: Past use Frequency: Quant:
--- NOTE | 2020-07-17 07:33 | HPC ---
[facility] [address] [place] [address] PAIN MANAGEMENT CONSULTATION Name: KASSIE MONTANA Room #: REG LACEY Julio César.#: [id number] Admission: 07/16/20 Attend Phys: Kitty Devi Discharge: Date of : 35 Report #: [id number] CC: Kitty Garber MD DATE OF SERVICE: 07/16/2020 CHIEF COMPLAINT: Chronic hip pain and lumbar radiculopathy. HISTORY OF PRESENT ILLNESS: This is a very pleasant 85-year-old female who returns to the pain clinic today to discuss her various pain generators. Today, she is stating that the hydrocodone has been beneficial in helping relieve a significant portion of her pain enabling her to be very active while the medication is working. She does go to the grocery store and does daily exercises. She believes that these are all beneficial in helping reduce some of her pain in her lower back that does radiate into her feet. She does unfortunately suffer from neuropathy in her bilateral feet and that is her biggest complaint today. She states that she has burning most significantly throughout the day. She does take gabapentin 300 mg at night and 100 mg in the morning, though at times she does feel slightly dizzy with a daily morning dose. It does decrease later in the day per her report. She feels that overall her pain level is a 3/10 today. It is worse when she is standing and walking, better with her medications as well as elevating her legs. The patient today is here for refills of her medications. ALLERGIES: SULFA AND CELEBREX. CURRENT LIST OF MEDICATIONS: Centrum Silver, hydrocodone 5/325 p.r.n., Senokot, gabapentin 300 at bedtime, 100 in the morning, vitamin D, aspirin, Tylenol Extra Strength, vitamin B12 and fish oil. PQRS: 1. She has osteoarthritis in her hips and upper and lower extremities. Denies any rheumatoid arthritis. 2. Height is 4 feet 11 inches, weight is 96 pounds, BMI is 19.5. 3. Vital signs; blood pressure 123/57, pulse is 75, respirations 14, oxygen sat is 98. 4. Pain score is 3/10. 5. Complains of slight dizziness. Does use a walker at all times and has not fallen in the last 3 months. 6. The patient is not on any blood thinners or medicine for hypertension. 7. Opioid therapy is greater than 6 weeks; therefore, an opioid signed contract is on the chart. Risk assessment is low. Functional assessment is 36/70. 8. Recreational drug use, she denies. She is not a smoker and does not drink alcohol. According to the prescription monitoring system, the patient is filling appropriately for her medications, filling them in a timely fashion. Her morphine milliequivalent is 20 MME according to the conversion factors. There is an opioid drug screen on the chart that is appropriate as well for her medications. PHYSICAL EXAMINATION: GENERAL: This is alert and orientated, very pleasant, well-nourished 85-year-old female, placing her current pain score today at 3/10. She is a good historian. HEENT: Normocephalic, atraumatic. Extraocular eye muscles are intact. Sclerae are nonintrinsic. She is wearing a mask and glasses. MUSCULOSKELETAL: She has tenderness in the lumbosacral region that does radiate down her legs into her feet bilaterally with burning sensations in her bilateral feet, greater on the right than the left. She has a slightly antalgic gait. Does use a walker at all times. With prolonged standing pain increases in her lower back radiating from her buttocks into her legs. Straight leg raising is negative. IMPRESSION: 1. Lumbar radiculopathy. 2. Peripheral neuropathy. 3. Chronic hip pain, status post fracture and repair. 4. Failed spinal cord stimulator. 5. Management of high risk medications under terms of written opioid agreement. We reviewed the fact that opiate medications are being used to provide analgesia adequate to support activities of daily living, not attempting to achieve a specific pain score on the 0-10 Visual Analog Scale. The current opiate medications are providing sufficient analgesia to allow the patient to participate in activities of daily living. The patient is not exhibiting any aberrant behavior suggestive of drug diversion. The patient is not having any adverse reactions to medications. The patient is not suffering from daytime somnolence or mental acuity changes. The patient is managing opiate-induced constipation with appropriate vlnw-wfe-rgaqlhg agents and dietary considerations. The patient was counseled on concern for caution with operating a motor vehicle while using opiate medications. PLAN: 1. We discussed treatment options with the patient today. The patient has had numerous injections in the past from multiple providers. Dr. Garber had provided her an epidural steroid injection in 2018. She felt at that time that it was not beneficial. Last year she did have multiple sacroiliac joint injections as well as a spinal cord stimulator that was implanted. She found to have no benefit from those treatments. The patient has been complaining of increasing leg pain. We did discuss the possibility of another lumbar epidural steroid injection by Dr. Garber to see if this is beneficial in helping with some of her burning sensation in her feet and pain in her lower calf. This patient is agreeable to try an epidural again. 2. The patient does report that her right hip pain has been relieved significantly. She has been working with [facility] and has been altering her gait and strengthening her muscles in her lower extremities and has decreased pain significantly. 3. We did discuss her gabapentin, which she believes helps with her peripheral neuropathy, encouraging her to take her medicine at 4 in the morning when she is up to the restroom before she returns to bed to see if that helps taking it earlier to prevent her foggy sensation she feels in the middle of the morning. We will continue her on her hydrocodone 5/325, #120. These will be sent electronically to her pharmacy by Dr. Panfilo Garber. 4. We did briefly discuss methadone at a very low dose of 2.5 mg, possibly b.i.d. to see if this may help some of her lumbar radiculopathy and neuropathy sensations. This may be trialed at a later date after we determine if the epidural was effective or not. The patient has been on long-acting medications in the past, but currently finds the hydrocodone beneficial. 4. Appointment made for the patient to return in 2 weeks for an epidural by Dr. Garber possibly at the L4-L5 level. The patient is seen in collaboration with him today. <ELECTRONICALLY SIGNED> By: Kitty Devi 07/17/20 0733 [id number] 1300 Kitty Devi /nt
== END ==
LOC: PAIN 06:51
PROVIDERS: ATTEND Clinical Nurse Specialist Adult Health
DX: M54.16 Radiculopathy, lumbar region (principal); G62.9 Polyneuropathy, unspecified; G89.29 Other chronic pain; Z79.891 Long term (current) use of opiate analgesic

== ENCOUNTER → 2020-07-27 | Outpatient (CLI) | payer OTHER ==
[~2020-07-27] VITALS: Ht 147.3 cm; Wt 43.8 kg
[2020-07-27 09:29] VITALS: BP 128/60
--- NOTE | 2020-07-27 09:42 | NUR ---
Pain Clinic Assessment: 1. History of Osteoarthritis: HIPS Left Upper Extremity Right Upper Extremity Right Lower Extremity History of Rheumatoid Arthritis: NONE 2. Height: 4 ft. 10 in. 147.3 cm. Weight: 96.6 lb. oz. 43.817 kg. Patient's BMI: 20.2 3. Vital Signs: BP: 128/60 Pulse: 76 Resp: 16 Temp: 02 Sat: 99 ECG Mon: 4. Pain Intensity: 2 5. Fall Risk: Dizziness: Needs help standing or walking: Fallen in the last 3 months: Fall risk comments: 6. Patient on Blood Thinner: None 7. History of Hypertension: N 8. Opioid Therapy greater than 6 weeks: Y Opiate Contract Signed: 11/08/18 9. Risk Assessment Tool Provided: 2- LOW 10. Functional Assessment Tool: 11. Recreational Drug Use: Never Drug Type: Tobacco Use: Never Smoker Tobacco Type: Amount or Packs/day: How Many Years: Alcohol Use: Past use Frequency: Quant:
== END | disposition home or self-care (01) ==
LOC: PAIN 07:01
PROVIDERS: ATTEND Anesthesiology Pain Medicine
DX: M54.16 Radiculopathy, lumbar region (principal); G89.29 Other chronic pain; M19.90 Unspecified osteoarthritis, unspecified site; Z98.890 Other specified postprocedural states; Z79.899 Other long term (current) drug therapy; Z79.82 Long term (current) use of aspirin; Z88.2 Allergy status to sulfonamides; Z88.8 Allergy status to other drugs, medicaments and biological substances

== ENCOUNTER → 2020-09-10 | Outpatient (CLI) | payer OTHER ==
[~2020-09-10] VITALS: Ht 147.3 cm; Wt 42.5 kg
[~2020-09-10] MED LIST changes: +ALPHA LIPOIC A600 M1 PO; -NEURONTIN 300300 M1 PO
[2020-09-10 11:28] VITALS: BP 126/62
--- NOTE | 2020-09-11 07:43 | HPC ---
[facility] [place] [address] [place] [address] PAIN MANAGEMENT CONSULTATION Name: KASSIE MONTANA Room #: REG LACEY Angela.#: [id number] Admission: 09/10/20 Attend Phys: Kitty Devi Discharge: Date of : 35 Report #: [id number] THIS REPORT FOR: cc: Maurizio Patel MD, Bruce H. MD Hocker,Kitty HOOPER ~ DATE OF SERVICE: 09/10/2020 CC: Dr Panfilo Garber MD CHIEF COMPLAINT: Chronic hip pain and lumbar radiculopathy. HISTORY OF PRESENT ILLNESS: This is a very pleasant 85-year-old female who returns to the pain clinic today for discussion and refill of her medications. She is reporting a pain at 5/10, mostly located in her bilateral feet and legs. Does have ongoing right hip pain. She reports her pain is mostly significant after she is walking or standing for a prolonged period of time or when she is lying in bed with pressure on her feet. She is rating her pain a 5/10 with significant burning and numbness in her feet. The patient reports seeing Dr. Cheney who did perform several lab tests and an EMG. The EMG is positive for peripheral neuropathy. The patient also started on medication Alpha lipoic acid for 1 month to see if this is helpful in decreasing some of her neuropathic pain. She is following up with Dr. Cheney per her report in mid September. The patient also has been continuing her gabapentin for her neuropathy. ALLERGIES: SULFA AND CELEBREX. CURRENT LIST OF MEDICATIONS: Alpha lipoic acid 600 mg daily, hydrocodone 5/325 p.r.n., multivitamin, gabapentin, vitamin D, aspirin, Tylenol and fish oil. PQRS: 1. She has arthritic changes in her upper and lower extremities. Denies any rheumatoid arthritis. 2. Height is 4 feet 10 inches, weight is 93 pounds, BMI is 19. 3. Vital signs 126/62, pulse is 79, respirations 16, oxygen sat is 100. 4. Pain score is 5/10. 5. Complains of slight dizziness and does use a walker at all times. Has not fallen in the last 3 months. 6. The patient is not on any blood thinners or medicine for hypertension. 7. Opioid therapy is greater than 6 weeks; therefore, an opioid signed contract is on the chart. Risk assessment is low. Functional assessment is 36/70. 8. Recreational drug use, she denies. She is not a smoker and does not drink alcohol. According to the prescription monitoring system, the patient is filling appropriately. She is due to fill her medications next week. Her morphine mEq [address] [address] PAIN MANAGEMENT CONSULTATION Name: ROSALINDTEREZA VASQUEZGrzegorz Molina Room #: REG CLEstuardo Keen#: [id number] Admission: 09/10/20 Attend Phys: Kitty Devi Discharge: Date of : 35 Report #: [id number] is 20 MMEs. There is a random drug screen on the chart that is appropriate as well. PHYSICAL EXAMINATION: GENERAL: This is an alert and orientated, very pleasant 85-year-old female who appears her stated age, placing her current pain score at 5/10. HEENT: Normocephalic, atraumatic. Extraocular eye muscles are intact. She is wearing a mask. MUSCULOSKELETAL: She has tenderness in her lumbosacral region. Positive straight leg raising on the right consistent with radiculopathy at the L4, L5, S1 dermatomal distribution. Lower extremity strength is symmetrical. IMPRESSION: 1. Low back pain with radiculopathy. 2. Peripheral neuropathy, bilateral feet. 3. Chronic hip pain. 4. Failed spinal cord stimulator. 5. Management of high risk medications under terms of written opioid agreement. We reviewed the fact that opiate medications are being used to provide analgesia adequate to support activities of daily living, not attempting to achieve a specific pain score on the 0-10 Visual Analog Scale. The current opiate medications are providing sufficient analgesia to allow the patient to participate in activities of daily living. The patient is not exhibiting any aberrant behavior suggestive of drug diversion. The patient is not having any adverse reactions to medications. The patient is not suffering from daytime somnolence or mental acuity changes. The patient is managing opiate-induced constipation with appropriate cbee-bxz-ozuvxni agents and dietary considerations. The patient was counseled on concern for caution with operating a motor vehicle while using opiate medications. A physical exam was performed and the patient's functional status was evaluated. All patients with back pain were advised against the bed rest greater than 4 days and were advised to return to normal activities. Pain score assessment was noted and the treatment plan was reviewed with the patient. All current medications, both prescribed and OTC were reviewed and reconciled on the electronic medical record. Tobacco screening was accomplished and smoking cessation was advised when indicated. BMI was noted and diet/exercise modification was recommended for all patients following outside normal parameters. I reviewed with the patient today their responsibilities to safeguard prescription medications, reviewed their responsibility to utilize medications only as prescribed by the physician. They are to seek and receive pain medications only from 1 physician group ([facility]). They are to use [address] [address] PAIN MANAGEMENT CONSULTATION Name: KASSIE MONTANA Room #: REG LACEY Keen#: [id number] Admission: 09/10/20 Attend Phys: Kitty Devi Discharge: Date of : 35 Report #: [id number] pharmacy and keep the clinic informed if they change pharmacies. Their responsibilities include making followup visits in a timely fashion and to avoid abrupt discontinuation of medication usage. Their responsibilities further include bringing their medications (bottles from the pharmacy with residual pills) to the visit for possible confirmation of pill counts and the patient understands it is their responsibility to submit to random drug screens to ensure both that the medications prescribed are present, and that no other controlled substances are present. All prescriptions provided today were generated electronically. PLAN: 1. We discussed treatment options with the patient today. The patient found the lumbar epidural steroid injection that Dr. Garber performed on her to have a small amount of benefit. She is recently started on new medications to help treat her ongoing neuropathic pain as well as continuing on gabapentin taking 100 mg in the morning and 200 at night. She occasionally has some dizziness side effects from the gabapentin, but feels that it is slowly being beneficial. 2. I encouraged her to continue her medication from Dr. Cheney and followup with her in September for her ongoing treatment and keep us apprised of any changes or additions to medications. 3. We will continue her on hydrocodone 5/325, sending #120 to the pharmacy by Dr. Panfilo Garber for 3-month supply. 4. I did encourage her to continue with her exercising, keep active as possible. The patient does jim, and knits for hand exercises, and plays the harmonica to aid lung expansion. She continiues to walk with her walker outside and continues seated chair exercises on a daily basis. The patient is seen today in collaboration with Dr. Panfilo Garber. <ELECTRONICALLY SIGNED> By: Kitty Devi 09/11/20 0743 1321 23 Kitty Devi /nt
== END ==
LOC: PAIN 06:52
PROVIDERS: ATTEND Clinical Nurse Specialist Adult Health
DX: M54.16 Radiculopathy, lumbar region (principal); G62.9 Polyneuropathy, unspecified; M25.559 Pain in unspecified hip; M96.1 Postlaminectomy syndrome, not elsewhere classified; F11.20 Opioid dependence, uncomplicated; Z88.8 Allergy status to other drugs, medicaments and biological substances; Z79.899 Other long term (current) drug therapy

== ENCOUNTER → 2020-11-19 | Outpatient (CLI) | payer OTHER ==
[~2020-11-19] VITALS: Ht 147.3 cm; Wt 43.1 kg
[2020-11-19 10:52] VITALS: BP 125/80
--- NOTE | 2020-11-19 10:56 | NUR ---
Pain Clinic Assessment: 1. History of Osteoarthritis: HIPS Left Upper Extremity Right Upper Extremity Right Lower Extremity History of Rheumatoid Arthritis: NONE 2. Height: 4 ft. 10 in. 147.3 cm. Weight: 95.0 lb. oz. 43.092 kg. Patient's BMI: 19.9 3. Vital Signs: BP: 125/80 Pulse: 81 Resp: 18 Temp: 02 Sat: 97 ECG Mon: 4. Pain Intensity: 3 5. Fall Risk: Dizziness: N Needs help standing or walking: N Fallen in the last 3 months: N Fall risk comments: 6. Patient on Blood Thinner: None 7. History of Hypertension: N 8. Opioid Therapy greater than 6 weeks: Y Opiate Contract Signed: 11/08/18 9. Risk Assessment Tool Provided: 2- LOW 10. Functional Assessment Tool: 11. Recreational Drug Use: Never Drug Type: Tobacco Use: Never Smoker Tobacco Type: Amount or Packs/day: How Many Years: Alcohol Use: Past use Frequency: Quant:
--- NOTE | 2020-11-19 13:16 | HPC ---
[facility] [address] [place] [address] PAIN MANAGEMENT CONSULTATION Name: KASSIE MONTANA Room #: REG LACEY RiddleNbaOnur.#: [id number] Admission: 11/19/20 Attend Phys: Kitty Devi Discharge: Date of : 35 Report #: [id number] THIS REPORT FOR: cc: Maurizio Patel MD, Bruce H. MD Hocker,Kitty HOOPER ~ DATE OF SERVICE: 11/19/2020 CHIEF COMPLAINT: Chronic hip pain and lumbar radiculopathy. HISTORY OF PRESENT ILLNESS: This is a very pleasant 85-year-old female who returns today for refills of her medication. She reports she was finally able to have her foot surgery by Dr. Gideon Bautista on 11/02, this has been postponed several times due to COVID as well as her hip surgery. She is very thankful to have her second toe removed on her right foot as well as a tendon release on her other toes. She had been suffering from pain due to the deformity of her foot. The patient is wearing a shoe today and has been able to walk with limited discomfort per her report. Postoperatively, the patient did receive a short prescription of hydrocodone from Dr. Bautista, but today she is due according to the calculations for medication refills from our physicians. Today, the patient is reporting a pain score of 3/10, mostly located in her lower back as well as her neuropathy that she suffers within her feet bilaterally. She describes it as a burning, sharp sensation, worse with movement, standing and walking. She continues to do daily exercises via a TV program and is going to start new stretching exercises that are specific for neuropathy that she has found on YouTube. The patient denies any constipation issues from her hydrocodone and would like refills today. ALLERGIES: SULFA AND CELEBREX. CURRENT LIST OF MEDICATIONS: Hydrocodone 5/325 up to 4 times a day, alpha-lipoic acid, Centrum Silver, gabapentin 100 in the morning and 200 at night, vitamin D, aspirin, Tylenol, vitamin B12 and fish oil. PQRS: 1. She has osteoarthritic changes in her hips and upper and lower extremities. She denies any rheumatoid arthritis. 2. Height is 4 feet 10 inches, weight is 95, BMI is 19.9. 3. Vital signs; blood pressure 125/80, pulse is 81, respirations 18, oxygen sat is 97%. 4. Pain score is 3/10. 5. Denies dizziness, does not need help standing or walking, has fallen in the last 3 months. 6. The patient is not on any blood thinners or medicine for hypertension. 7. Opioid therapy is greater than 6 weeks; therefore, an opioid signed contract [address] [address] PAIN MANAGEMENT CONSULTATION Name: TEREZA MONTANAGrzegorz Molina Room #: REG CLI Osmani#: [id number] Admission: 11/19/20 Attend Phys: Kitty Devi Discharge: Date of : 35 Report #: [id number] is on the chart. Risk assessment is low. Functional assessment is 36/70. 8. Recreational drug use, she denies. She is not a smoker and does not drink alcohol. According to the prescription monitoring system, she did have one fill from Dr. Bautista for her surgery, but otherwise she is due for her medications today filling them appropriately. Her morphine milliequivalent is 20 MME. There is a drug screen on the chart that is appropriate as well. PHYSICAL EXAMINATION: GENERAL: This is alert and orientated 85-year-old female who appears younger and acts younger than her stated age, rating her pain score at 3/10 today. HEENT: Normocephalic and atraumatic. Extraocular eye muscles are intact. She is wearing a mask. MUSCULOSKELETAL: She has tenderness in her lumbosacral region. Positive right leg raising on the right consistent with her radiculopathy at the L4-L5 level. She has a dressing over her right foot her second toe, which was removed, ecchymosis noted on the dorsum of her foot. No swelling noted. The patient has an antalgic gait and uses a walker at all times. IMPRESSION: 1. Low back pain with radiculopathy. 2. Peripheral neuropathy, bilateral feet. 3. Chronic hip pain. 4. Failed spinal cord stimulator. 5. Recent hammertoe removal and tendon release surgery, right foot. 6. Management of high risk medications under terms of written opioid agreement. PLAN: 1. We discussed treatment options with the patient today. The patient feels the medication as well as stretching and being active, have been beneficial in decreasing her low back pain. She is thankful for the medications and would like refills. Dr. Ananda Sanford sent refills that were released for 11/19,12/17 hydrocodone 5/325, #120. 2. The patient does have a healing right foot from recent surgery. She has been able to walk with her walker and is thankful. She no longer needs the boot, which did aggravate her back pain for several days, but she has recently started her stretching exercises again and finds that very beneficial. 3. The patient is scheduled to have her first COVID vaccination tomorrow through the [facility]. 4. The patient will return in 2 months. Today, she is seen in collaboration with Dr. Panfilo Garber who I did discuss care via the telephone. <ELECTRONICALLY SIGNED> By: Kitty Devi 11/19/20 1316 [id number] Kitty Devi /nt
== END ==
LOC: PAIN 07:49
PROVIDERS: ATTEND Clinical Nurse Specialist Adult Health
DX: Z76.0 Encounter for issue of repeat prescription (principal); M54.16 Radiculopathy, lumbar region; G62.9 Polyneuropathy, unspecified; G89.29 Other chronic pain; Z79.891 Long term (current) use of opiate analgesic; Z79.899 Other long term (current) drug therapy; Z88.2 Allergy status to sulfonamides

== ENCOUNTER → 2021-01-18 | Outpatient (CLI) | payer OTHER ==
[~2021-01-18] VITALS: Ht 147.3 cm; Wt 43.4 kg
[2021-01-18 09:09] VITALS: BP 124/70
--- NOTE | 2021-01-18 09:14 | NUR ---
Pain Clinic Assessment: 1. History of Osteoarthritis: HIPS Left Upper Extremity Right Upper Extremity Right Lower Extremity History of Rheumatoid Arthritis: NONE 2. Height: 4 ft. 10 in. 147.3 cm. Weight: 95.6 lb. oz. 43.364 kg. Patient's BMI: 20.0 3. Vital Signs: BP: 124/70 Pulse: 77 Resp: 14 Temp: 02 Sat: 100 ECG Mon: 4. Pain Intensity: 5 5. Fall Risk: Dizziness: N Needs help standing or walking: Y Fallen in the last 3 months: N Fall risk comments: 6. Patient on Blood Thinner: None 7. History of Hypertension: N 8. Opioid Therapy greater than 6 weeks: Y Opiate Contract Signed: 11/08/18 9. Risk Assessment Tool Provided: 2- LOW 10. Functional Assessment Tool: 11. Recreational Drug Use: Never Drug Type: Tobacco Use: Never Smoker Tobacco Type: Amount or Packs/day: How Many Years: Alcohol Use: Past use Frequency: Quant:
== END ==
LOC: PAIN 07:07
PROVIDERS: ATTEND Clinical Nurse Specialist Adult Health
DX: G62.89 Other specified polyneuropathies (principal); M54.16 Radiculopathy, lumbar region; T85.192A Other mechanical complication of implanted electronic neurostimulator of spinal cord electrode (lead), initial encounter; M16.0 Bilateral primary osteoarthritis of hip; Z88.2 Allergy status to sulfonamides; Z88.8 Allergy status to other drugs, medicaments and biological substances; Z79.891 Long term (current) use of opiate analgesic; Z79.899 Other long term (current) drug therapy; Y83.8 Other surgical procedures as the cause of abnormal reaction of the patient, or of later complication, without mention of misadventure at the time of the procedure; Y82.8 Other medical devices associated with adverse incidents

== ENCOUNTER → 2021-03-18 | Outpatient (CLI) | payer OTHER ==
[~2021-03-18] VITALS: Ht 147.3 cm; Wt 42.6 kg
[2021-03-18 09:08] VITALS: BP 116/55
--- NOTE | 2021-03-18 09:27 | NUR ---
Pain Clinic Assessment: 1. History of Osteoarthritis: Left Upper Extremity Right Lower Extremity Right Upper Extremity HIPS History of Rheumatoid Arthritis: NONE 2. Height: 4 ft. 10 in. 147.3 cm. Weight: 94.0 lb. oz. 42.638 kg. Patient's BMI: 19.7 3. Vital Signs: BP: 116/55 Pulse: 78 Resp: 14 Temp: 02 Sat: 100 ECG Mon: 4. Pain Intensity: 5 5. Fall Risk: Dizziness: Y Needs help standing or walking: Y Fallen in the last 3 months: N Fall risk comments: 6. Patient on Blood Thinner: None 7. History of Hypertension: N 8. Opioid Therapy greater than 6 weeks: Y Opiate Contract Signed: 11/08/18 9. Risk Assessment Tool Provided: 2- LOW 10. Functional Assessment Tool: 11. Recreational Drug Use: Never Drug Type: Tobacco Use: Never Smoker Tobacco Type: Amount or Packs/day: How Many Years: Alcohol Use: Past use Frequency: Quant:
== END ==
LOC: PAIN 08:26
PROVIDERS: ATTEND Clinical Nurse Specialist Adult Health
DX: M25.559 Pain in unspecified hip (principal); M54.5 Low back pain; M54.16 Radiculopathy, lumbar region; Z88.2 Allergy status to sulfonamides; Z88.8 Allergy status to other drugs, medicaments and biological substances; G62.9 Polyneuropathy, unspecified; G89.29 Other chronic pain; Z79.82 Long term (current) use of aspirin; Z79.899 Other long term (current) drug therapy

== ENCOUNTER → 2021-03-22 | Outpatient (CLI) | payer OTHER ==
[~2021-03-22] VITALS: Ht 147.3 cm; Wt 42.6 kg
[~2021-03-22] MED LIST changes: +CO Q10100 MG PO
[2021-03-22 11:22] VITALS: BP 124/86
--- NOTE | 2021-03-22 11:51 | NUR ---
Pain Clinic Assessment: 1. History of Osteoarthritis: Left Upper Extremity Right Lower Extremity Right Upper Extremity HIPS History of Rheumatoid Arthritis: NONE 2. Height: 4 ft. 10 in. 147.3 cm. Weight: 94.0 lb. oz. 42.638 kg. Patient's BMI: 19.7 3. Vital Signs: BP: 124/86 Pulse: 73 Resp: 14 Temp: 02 Sat: 97 ECG Mon: 4. Pain Intensity: 5 5. Fall Risk: Dizziness: N Needs help standing or walking: Y Fallen in the last 3 months: N Fall risk comments: 6. Patient on Blood Thinner: None 7. History of Hypertension: N 8. Opioid Therapy greater than 6 weeks: Y Opiate Contract Signed: 11/08/18 9. Risk Assessment Tool Provided: 2- LOW 10. Functional Assessment Tool: 11. Recreational Drug Use: Never Drug Type: Tobacco Use: Never Smoker Tobacco Type: Amount or Packs/day: How Many Years: Alcohol Use: Past use Frequency: Quant:
== END | disposition home or self-care (01) ==
LOC: PAIN 07:08
PROVIDERS: ATTEND Anesthesiology Pain Medicine
DX: M54.16 Radiculopathy, lumbar region (principal); M48.061 Spinal stenosis, lumbar region without neurogenic claudication; G89.29 Other chronic pain; M19.90 Unspecified osteoarthritis, unspecified site; Z98.890 Other specified postprocedural states; Z79.899 Other long term (current) drug therapy; Z88.2 Allergy status to sulfonamides; Z88.8 Allergy status to other drugs, medicaments and biological substances

== ENCOUNTER → 2021-05-17 | Outpatient (CLI) | payer OTHER ==
[~2021-05-17] VITALS: Ht 147.3 cm; Wt 42.8 kg
[~2021-05-17] MED LIST changes: +METHADONE HCL5 MG PO
[2021-05-17 13:21] VITALS: BP 121/66
--- NOTE | 2021-05-17 13:54 | NUR ---
Pain Clinic Assessment: 1. History of Osteoarthritis: Left Upper Extremity Right Lower Extremity Right Upper Extremity HIPS History of Rheumatoid Arthritis: NONE 2. Height: 4 ft. 10 in. 147.3 cm. Weight: 94.4 lb. oz. 42.819 kg. Patient's BMI: 19.7 3. Vital Signs: BP: 121/66 Pulse: 73 Resp: 14 Temp: 02 Sat: 100 ECG Mon: 4. Pain Intensity: 5 5. Fall Risk: Dizziness: Y Needs help standing or walking: Y Fallen in the last 3 months: N Fall risk comments: 6. Patient on Blood Thinner: None 7. History of Hypertension: N 8. Opioid Therapy greater than 6 weeks: Y Opiate Contract Signed: 11/08/18 9. Risk Assessment Tool Provided: 2- LOW 10. Functional Assessment Tool: 11. Recreational Drug Use: Never Drug Type: Tobacco Use: Never Smoker Tobacco Type: Amount or Packs/day: How Many Years: Alcohol Use: Past use Frequency: Quant:
== END ==
LOC: PAIN 11:01
PROVIDERS: ATTEND Anesthesiology Pain Medicine
DX: M47.26 Other spondylosis with radiculopathy, lumbar region (principal); G89.4 Chronic pain syndrome; Z79.899 Other long term (current) drug therapy; Z79.891 Long term (current) use of opiate analgesic

== ENCOUNTER → 2021-06-07 | Outpatient (CLI) | payer OTHER ==
[~2021-06-07] VITALS: Ht 149.9 cm; Wt 42.3 kg
[2021-06-07 15:19] VITALS: BP 146/69
--- NOTE | 2021-06-07 15:41 | NUR ---
Pain Clinic Assessment: 1. History of Osteoarthritis: Left Upper Extremity Right Lower Extremity Right Upper Extremity HIPS History of Rheumatoid Arthritis: NONE 2. Height: 4 ft. 11 in. 149.9 cm. Weight: 93.2 lb. oz. 42.275 kg. Patient's BMI: 18.8 3. Vital Signs: BP: 146/69 Pulse: 73 Resp: 14 Temp: 02 Sat: 100 ECG Mon: 4. Pain Intensity: 5 5. Fall Risk: Dizziness: N Needs help standing or walking: Y Fallen in the last 3 months: Y Fall risk comments: 6. Patient on Blood Thinner: None 7. History of Hypertension: N 8. Opioid Therapy greater than 6 weeks: Y Opiate Contract Signed: 11/08/18 9. Risk Assessment Tool Provided: 2- LOW 10. Functional Assessment Tool: 11. Recreational Drug Use: Never Drug Type: Tobacco Use: Never Smoker Tobacco Type: Amount or Packs/day: How Many Years: Alcohol Use: Past use Frequency: Quant:
== END ==
LOC: PAIN 07:07
PROVIDERS: ATTEND Anesthesiology Pain Medicine
DX: G89.29 Other chronic pain (principal); M47.26 Other spondylosis with radiculopathy, lumbar region; G62.89 Other specified polyneuropathies; Z79.82 Long term (current) use of aspirin; Z79.891 Long term (current) use of opiate analgesic; Z79.899 Other long term (current) drug therapy

== ENCOUNTER → 2021-06-14 | Outpatient (CLI) | payer OTHER ==
[~2021-06-14] VITALS: Ht 149.9 cm; Wt 41.6 kg
[~2021-06-14] MED LIST changes: +SALONPAS LIDOCA85 GM
[2021-06-14 14:38] VITALS: BP 151/70
--- NOTE | 2021-06-14 14:55 | NUR ---
Pain Clinic Assessment: 1. History of Osteoarthritis: Left Upper Extremity Right Lower Extremity Right Upper Extremity HIPS History of Rheumatoid Arthritis: NONE 2. Height: 4 ft. 11 in. 149.9 cm. Weight: 91.8 lb. oz. 41.640 kg. Patient's BMI: 18.5 3. Vital Signs: BP: 151/70 Pulse: 77 Resp: 14 Temp: 02 Sat: 100 ECG Mon: 4. Pain Intensity: 8 5. Fall Risk: Dizziness: N Needs help standing or walking: Y Fallen in the last 3 months: N Fall risk comments: 6. Patient on Blood Thinner: None 7. History of Hypertension: N 8. Opioid Therapy greater than 6 weeks: Y Opiate Contract Signed: 11/08/18 9. Risk Assessment Tool Provided: 2- LOW 10. Functional Assessment Tool: 11. Recreational Drug Use: Never Drug Type: Tobacco Use: Never Smoker Tobacco Type: Amount or Packs/day: How Many Years: Alcohol Use: Past use Frequency: Quant:
== END ==
LOC: PAIN 10:27
PROVIDERS: ATTEND Clinical Nurse Specialist Adult Health
DX: M47.816 Spondylosis without myelopathy or radiculopathy, lumbar region (principal); G62.9 Polyneuropathy, unspecified; G89.4 Chronic pain syndrome; R63.0 Anorexia; Z79.891 Long term (current) use of opiate analgesic; Z79.899 Other long term (current) drug therapy

== ENCOUNTER → 2021-07-22 | Outpatient (CLI) | payer OTHER ==
[~2021-07-22] VITALS: Ht 149.9 cm; Wt 39.6 kg
[2021-07-22 10:19] VITALS: BP 138/67
--- NOTE | 2021-07-22 10:40 | NUR ---
Pain Clinic Assessment: 1. History of Osteoarthritis: Left Upper Extremity Right Lower Extremity Right Upper Extremity HIPS History of Rheumatoid Arthritis: NONE 2. Height: 4 ft. 11 in. 149.9 cm. Weight: 87.4 lb. oz. 39.644 kg. Patient's BMI: 17.6 3. Vital Signs: BP: 138/67 Pulse: 88 Resp: 16 Temp: 02 Sat: 97 ECG Mon: 4. Pain Intensity: 10 5. Fall Risk: Dizziness: N Needs help standing or walking: Y Fallen in the last 3 months: N Fall risk comments: 6. Patient on Blood Thinner: None 7. History of Hypertension: N 8. Opioid Therapy greater than 6 weeks: Y Opiate Contract Signed: 11/08/18 9. Risk Assessment Tool Provided: 2- LOW 10. Functional Assessment Tool: 11. Recreational Drug Use: Never Drug Type: Tobacco Use: Never Smoker Tobacco Type: Amount or Packs/day: How Many Years: Alcohol Use: Past use Frequency: Quant:
== END | disposition home or self-care (01) ==
LOC: PAIN 09:41
PROVIDERS: ATTEND Anesthesiology Pain Medicine
DX: M51.16 Intervertebral disc disorders with radiculopathy, lumbar region (principal); M47.26 Other spondylosis with radiculopathy, lumbar region; M43.16 Spondylolisthesis, lumbar region; M19.90 Unspecified osteoarthritis, unspecified site; Z98.890 Other specified postprocedural states; Z79.899 Other long term (current) drug therapy; Z88.8 Allergy status to other drugs, medicaments and biological substances; Z88.2 Allergy status to sulfonamides

== ENCOUNTER → 2021-08-23 | Outpatient (CLI) | payer OTHER ==
[~2021-08-23] VITALS: Ht 149.9 cm; Wt 40.1 kg
[~2021-08-23] MED LIST changes: +HYDROCODONE-AP1 EA11 PO
[2021-08-23 11:13] VITALS: BP 147/64
--- NOTE | 2021-08-23 11:18 | NUR ---
Pain Clinic Assessment: 1. History of Osteoarthritis: Left Upper Extremity Right Lower Extremity Right Upper Extremity HIPS History of Rheumatoid Arthritis: NONE 2. Height: 4 ft. 11 in. 149.9 cm. Weight: 88.4 lb. oz. 40.098 kg. Patient's BMI: 17.8 3. Vital Signs: BP: 147/64 Pulse: 79 Resp: 16 Temp: 02 Sat: 100 ECG Mon: 4. Pain Intensity: 5 5. Fall Risk: Dizziness: N Needs help standing or walking: N Fallen in the last 3 months: N Fall risk comments: 6. Patient on Blood Thinner: None 7. History of Hypertension: N 8. Opioid Therapy greater than 6 weeks: Y Opiate Contract Signed: 11/08/18 9. Risk Assessment Tool Provided: 2- LOW 10. Functional Assessment Tool: 11. Recreational Drug Use: Never Drug Type: Tobacco Use: Never Smoker Tobacco Type: Amount or Packs/day: How Many Years: Alcohol Use: Past use Frequency: Quant:
== END ==
LOC: PAIN 10:55
PROVIDERS: ATTEND Anesthesiology Pain Medicine
DX: M47.26 Other spondylosis with radiculopathy, lumbar region (principal); M54.50 Low back pain, unspecified; G62.9 Polyneuropathy, unspecified; Z79.891 Long term (current) use of opiate analgesic; Z79.899 Other long term (current) drug therapy; Z88.2 Allergy status to sulfonamides; Z88.8 Allergy status to other drugs, medicaments and biological substances; Z68.1 Body mass index [BMI] 19.9 or less, adult

== ENCOUNTER → 2021-11-15 | Outpatient (CLI) | payer OTHER ==
[~2021-11-15] VITALS: Ht 149.9 cm; Wt 41.3 kg
[~2021-11-15] MED LIST changes: +MAGNESIUM250 M1 PO
[2021-11-15 13:34] VITALS: BP 140/59
--- NOTE | 2021-11-15 13:47 | NUR ---
Pain Clinic Assessment: 1. History of Osteoarthritis: Left Upper Extremity Right Lower Extremity Right Upper Extremity HIPS History of Rheumatoid Arthritis: NONE 2. Height: 4 ft. 11 in. 149.9 cm. Weight: 91.0 lb. oz. 41.277 kg. Patient's BMI: 18.4 3. Vital Signs: BP: 140/59 Pulse: 73 Resp: 14 Temp: 02 Sat: 100 ECG Mon: 4. Pain Intensity: 4 5. Fall Risk: Dizziness: Y Needs help standing or walking: Y Fallen in the last 3 months: N Fall risk comments: 6. Patient on Blood Thinner: None 7. History of Hypertension: N 8. Opioid Therapy greater than 6 weeks: Y Opiate Contract Signed: 11/08/18 9. Risk Assessment Tool Provided: 2- LOW 10. Functional Assessment Tool: 11. Recreational Drug Use: Never Drug Type: Tobacco Use: Never Smoker Tobacco Type: Amount or Packs/day: How Many Years: Alcohol Use: Past use Frequency: Quant:
== END ==
LOC: PAIN 10:31
PROVIDERS: ATTEND Anesthesiology Pain Medicine
DX: S32.10XA Unspecified fracture of sacrum, initial encounter for closed fracture (principal); M54.50 Low back pain, unspecified; G89.29 Other chronic pain; Z79.899 Other long term (current) drug therapy; Z88.8 Allergy status to other drugs, medicaments and biological substances; X58.XXXA Exposure to other specified factors, initial encounter; Y93.89 Activity, other specified; Y92.89 Other specified places as the place of occurrence of the external cause; Y99.9 Unspecified external cause status